=== PATIENT | female | born 1970 | race Caucasian/White ===

== ENCOUNTER 2020-09-09 10:28 | Outpatient (CLI) | payer OTHER, SELFPAY ==
--- NOTE | 2020-09-13 10:06 | P.PCNHOL_ITS ---
Holter/Event Monitor Holter/Event Monitor Date of procedure: 09/09/20 Holter/Event Procedure: 48 Hr Holter Monitor Diagnosis: flutter Indications: flutter Image/Tracing Quality: good Finding: A total of 47 hours and 59 minutes recorded and analyzed. U Underlying normal sinus rhythm heart rate variability between 66 and 122 beats per minute with an average heart rate of 89 beats per minute. The AV and IV conduction systems are within normal limits Longest RR interval was 1.7 seconds No complex heart block or significant pauses Low frequency ventricular ectopy totaling 10 Beats. There were no sustained or nonsustained runs of ventricular arrhythmia. Some of these ventricular ectopic beats listed as interpolated PVCs are actually simply artifact. Low-frequency supraventricular ectopy totaling 62 beats. This consisted of 1 3 beat atrial run at a rate of 158 beats per minute. There was also 3 atrial p airs and 53 isolated PACs. No symptoms recorded Date of interpretation 09/13/2020 Conclusion: 1. Unremarkable 48 hour Holter monitor revealing underlying sinus rhythm with average heart rate of 89 beats per minute. 2. Low frequency ventricular ectopy as well as low-frequency supraventricular ectopy as detailed above 3. No symptoms recorded
== END 2020-09-09 10:29 | disposition home or self-care (01) ==
PROVIDERS: PCP Emergency Medicine; Visit Provider Nurse Practitioner Adult Health
DX: R00.2 Palpitations (principal)
CPT/HCPCS: 93225; 93226; 93227

== ENCOUNTER 2021-03-24 16:40 | Outpatient (CLI) | payer OTHER, SELFPAY ==
[2021-03-24 17:13] LABS: Basophils Percent Auto 0.6 % (0.2-1.2); Eosinophils Absolute Auto 0.2 K/mm3 (0-0.3); Eosinophils Percent Auto 2.5 % (0-4.4); Hematocrit 41.3 % (37.0-47.0); Hemoglobin 13.8 g/dL (12.0-15.0); Immature Granulocyte Absolute 0.01 K/mm3 (0.00-0.031); Immature Granulocyte Percent A 0.1 % (0-0.5); Lymphocytes Absolute Auto 1.88 K/mm3 (0.9-3.2); Lymphocytes Percent Auto 27.9 % (18.3-44.2); Mean Corpuscular HGB Conc 33.4 g/dl (32-36); Mean Corpuscular Hemoglobin 31.9 pg (26-34); Mean Corpuscular Volume 95.6 fl (80-100); Mean Platelet Volume 9.6 fl (7.4-10.4); Monocytes Absolute Auto 0.8 K/mm3 (0.1-0.6); Monocytes Percent Auto 11.3 % (2.6-8.5); Neutrophils Absolute Auto 3.9 K/mm3 (1.3-6.7); Neutrophils Percent Auto 57.6 % (45.5-73.1); Platelet Count Result 277 k/mm3 (150-375); Red Blood Count 4.32 M/mm3 (4.2-5.4); Red Cell Distribution Width 11.9 % (11.5-14.5); White Blood Count 6.7 K/mm3 (4.5-10.0)
[2021-03-24 17:27] LABS: Rheumatoid Factor < 8.6 IU/ML (<12)
[2021-03-24 18:22] LABS: Erythrocyte Sedimentation Rate 5 mm/hr (0-20)
[2021-03-24 21:00] LABS: CRP 0.8 mg/dL (<1.0)
== END 2021-03-24 16:41 | disposition home or self-care (01) ==
LOC: ANHLAB 16:44
PROVIDERS: PCP Emergency Medicine; Visit Provider Nurse Practitioner Adult Health
DX: R68.89 Other general symptoms and signs (principal)
CPT/HCPCS: 36415; 85025; 85652; 86038; 86140; 86430

== ENCOUNTER 2024-09-18 11:52 | Outpatient (CLI) | payer OTHER, SELFPAY ==
--- NOTE | ~2024-09-18 | MM_ITS ---
EXAMINATION: MM screening marlon BI w jessika HISTORY: Screening TECHNIQUE: Craniocaudal and mediolateral oblique 3-D tomosynthesis images were obtained and synthetic 2-D images were generated. CAD analysis was submitted and interpreted. COMPARISON: 08/21/2014 BREAST PARENCHYMAL COMPOSITION: Dense: The breasts are heterogeneously dense, which may obscure small masses FINDINGS: There is no evidence of suspicious mass, calcification, or architectural distortion to sugg est malignancy in either breast. There has been no suspicious interval change. IMPRESSION: 1. No mammographic evidence of malignancy. 2. Recommend routine screening mammography in one year. BI-RADS Category 1: Negative Reviewed, dictated and finalized at location B.
--- OUTSIDE RECORDS SUMMARY | 2024-09-18 11:57 | XMS_ITS | Referral Summary ---
Author Organization [facility] Address [address] [place] [address] Care Team Providers Care Production Editor Name Role Phone Rene Mejia MD Primary Care Provider [phone] Encounters Date Type Department Care Team Description 09/03/2024 11:00 AM CDT Office Visit [facility] at [address] [address] Corry Becerra NP Physical exam, pre-employment (Primary Dx) from Last 3 Months Allergies Active Allergy Reactions Criticality Noted Date Comments Sulfa Other (See comments) 08/14/2023 Eye drops worsened condition. Medications ALPRAZolam (XANAX) 0.5 mg tablet TAKE 1 TABLET BY MOUTH EVERY 24 HOURS NEEDED 5 Active amLODIPine (NORVASC) 5 mg tablet Take 1 tablet (5 mg total) by mouth nightly Active atorvastatin (LIPITOR) 10 mg tablet Take 1 tablet every day by oral route at bedtime for 90 days. 4 Active buPROPion XL (WELLBUTRIN XL) 150 mg 24 hr tablet Take 1 tablet (150 mg total) by mouth daily Active busPIRone (BUSPAR) 10 mg tablet Take 1 tablet (10 mg total) by mouth 2 (two) times a day as needed Active FLUoxetine (PROzac) 20 mg tablet Take 2 tablets (40 mg total) by mouth Active levonorgestreL (Mirena) IUD Take 1 device by intrauterine route. Active irbesartan-hydr ochlorothiazide (AVALIDE) 150-12.5 mg per tablet Take 1 tablet by mouth every morning 5 Active progesterone (PROMETRIUM) 100 mg capsule Take 1 capsule (100 mg total) by mouth 4 Active tretinoin (RETIN-A) 0.05 % cream APPLY A PEA-SIZED AMOUNT TOPICALLY TO ENTIRE FACE EVERY NIGHT AT BEDTIME 3 Active Active Problems No known active problems Social History Tobacco Use Types Packs/Day Years Used Date Smoking Tobacco: Never Personal Safety Answer Date Recorded Getting School Help Needed Not on file 05/19 Comments Unknown Sex and Gender Information Value Date Recorded Sex Assigned at Not on file Legal Sex Female 5:23 AM [employer] Gender Identity Not on file Sexual Orientation Not on file Last Filed Vital Signs Vital Sign Reading Time Taken Comments Blood Pressure 124/86 09/03/2024 11:07 AM CDT Pulse 78 09/03/2024 11:07 AM CDT Temperature 37 C (98.6 F) 09/03/2024 11:07 AM CDT Respiratory Rate 20 09/03/2024 11:07 AM CDT Oxygen Saturation 99% 09/03/2024 11:07 AM CDT Inhaled Oxygen Concentration - - Weight 81.2 kg (179 lb) 09/03/2024 11:07 AM CDT Height 168.9 cm (5' 6.5) 09/03/2024 11:07 AM CD T Body Mass Index 28.46 09/03/2024 11:07 AM CDT Plan of Treatment Not on file Care Teams Production Editor Relationship Specialty Start Date End Date Rene Mejia MD PCP - General 07/18/17
--- OUTSIDE RECORDS SUMMARY | 2024-09-18 11:57 | XMS_ITS | Data Portability ---
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 Plan of Treatment Reminders Order Date Submit Date Provider Last Modified By Organization Details Last Modified Time Details Appointments None recorded. Lab urinalysis , dipstick 2016 017 [email or web address] In-Office Order, Internal Use Only DO Not Attach Compendium DO Not Attach Compendium, Do Not Delete/merge, [id number] 7 13:55:16 test, urine 2016 017 [email or web address] In-Office Order, Internal Use Only DO Not Attach Compendium DO Not Attach Compendium, Do Not Delete/merge, [id number] 7 13:55:16 urinalysis , dipstick 2016 017 [email or web address] In-Office Order, Internal Use Only DO Not Attach Compendium DO Not Attach Compendium, Do Not Delete/merge, [id number] 7 16:04:54 pap, IG + HPV, cervical 2016 017 KESHA LABCORANDALL, [address], [address], [place], [address], 7 10:35:53 bacterial vaginosis + vaginitis panel, vaginal 2016 017 KESHA MARSHALLRP, [address], [address], [place], [address], 7 11:36:03 lipid panel, serum 2016 017 KESHA MARSHALLRP, [address], [address], [place], [address], 7 08:27:57 CMP, serum or plasma 2016 017 KESHA MARSHALLRP, [address], [address], [place], [address], 7 08:27:57 HbA1c (hemoglobi n A1c), blood 2016 017 KESHA TATE, [address], [address], [place], [address], 7 08:27:59 CBC 2016 017 KESHA TATE, [address], [address], [place], [address], 7 08:27:56 TSH + free T4, serum 2016 017 KESHA TATE, [address], [address], [place], [address], 7 08:27:56 PT/INR 2016 017 KESHA MARSHALLRP, [address], [address], [place], [address], 7 08:27:58 PTT (partial thrombopla stin time) mixing study 2016 017 KESHA MARSHALLRP, [address], [address], [place], [address], 7 08:28:00 HCG, intact + beta subunit, quant, serum or plasma 2016 017 [facility], [address] [place] [address], [address], [place], [address], 7 08:27:59 RPR (rapid plasma reagin), serum 2016 017 [facility], [address] [place] [address], [address], [place], [address], 7 08:28:01 hsv-2 (herpes simplex virus type 2) igg Ab, serum 2016 017 [facility], [address] [place] [address] [address], [address], [place], [address], 7 08:28:02 hepatitis panel (A+B+C), acute, serum 2016 017 [facility], [address] [place] [address], [address], [place], [address], 7 08:27:58 hepatitis B surface Ab, qualitativ e, serum 2016 017 [facility], [address] [place] [address], [address], [place], [address], 7 08:28:00 HIV 1+2 AB + HIV 1 p24 Ag, qualitativ e immunoassa y, serum 2016 017 [facility], [address], [address] [address], [place], [address], 7 08:28:01 pap, IG + HPV, cervical 2014 015 [facility], [address] [place] [address], [address], [place], [address], 5 06:10:08 HSV (1+2) DNA, qual, PCR, unspecifie d specimen 2014 015 [facility], [address], [address], [place], [address], 5 06:09:36 bacterial vaginosis + vaginitis panel, vaginal 2014 015 [facility], [address], [address], [place], [address], 5 06:09:36 test, urine 2014 015 [email or web address] In-Office Order, Internal Use Only DO Not Attach Compendium DO Not Attach Compendium, Do Not Delete/merge, [id number] 5 10:46:[address]/dietiti an referral - patient wants to come here 2016 017 [facility]/ [employer]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 Surgeries None recorded. Imaging US, pelvis, transabdom inal + transvagin al 2016 017 [facility] ([facility]), [address] [place], [address], 7 13:42:03 Medication Orders Metrogel Vaginal 0.75 % (37.5 mg/5 gram) [email or web address], [place], [place], [id number], 7 14:31:30 Junel FE 1.5/30 (28) 1.5 mg-30 mcg (21)/75 mg (7) tablet 2014 [email or web address], [place], [place], [id number], 7 14:31:17 Patient TargetsNo targets recorded. Patient Instructions Encounter Date Encounter Id Patient Instructions Last Modified By Organization Details Last Modified Time 10/19/2016 [id number] When You Want to Lose Weight: Care Instructions [email or web address] Not available 10/19/2016 15:11:13 Well Visit, Ages 18 to 65: Care Instructions [email or web address] Not available 10/19/2016 14:54:07 heavy menstrual periods: care instructions [email or web address] Not available 10/19/2016 15:11:13 11/10/2016 [id number] genital herpes: care instructions [email or web address] Not available 11/10/2016 16:12:51 high cholesterol: care instructions [email or web address] Not available 11/10/2016 16:12:52 uterine fibroids: care instructions [email or web address] Not available 11/10/2016 13:55:16 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 for Overweight patient wants to come here Referring Physician: Frank Pollard, ELECTRICAL DESIGNER DRAFTER, Encounter Date: 10/19/2016 Results Created Date Observation Date Name Description Value Unit Range Abnormal Flag Note LastModifiedBy Organization Detail LastModifiedTime 11/11/19 17 11/10/2016 pregn mike test, urine HCG negati ve Not Available In-Office Order Internal Use Only DO Not Attach Compendium DO Not Attach Compendium, Do Not Delete/merge, [id number] 11/10/2016 11:36:04 11/11/1911/10/2016 urina lysis , dipst ick Leukocytes Negati ve Not Available In-Office Order Internal Use Only DO Not Attach Compendium DO Not Attach Compendium, Do Not Delete/merge, [id number] 11/10/2016 11:35:20 11/11/1911/10/2016 urina lysis , dipst ick Nitrite negati ve Not Available In-Office Order Internal Use Only DO Not Attach Compendium DO Not Attach Compendium, Do Not Delete/merge, formerly [facility] 11/10/2016 11:35:20 11/11/1911/10/2016 urina lysis , dipst ick Urobilinogen .2 Not Available In-Of fice Order Internal Use Only DO Not Attach Compendium DO Not Attach Compendium, Do Not Delete/merge, formerly [facility] 11/10/2016 11:35:20 11/11/1911/10/2016 urina lysis , dipst ick Protein Negati ve Not Available In-Office Order Internal Use Only DO Not Attach Compendium DO Not Attach Compendium, Do Not Delete/merge, formerly [facility] 11/10/2016 11:35:20 11/11/1911/10/2016 urina lysis , dipst ick pH 7.0 Not Available In-Office Order Internal Use Only DO Not Attach Compendium DO Not Attach Compendium, Do Not Delete/merge, formerly [facility] 11/10/2016 11:35:20 11/11/1911/10/2016 urina lysis , dipst ick Blood Modera te Not Available In-Office Order Internal Use Only DO Not Attach Compendium DO Not Attach Compendium, Do Not Delete/merge, formerly [facility] 11/10/2016 11:35:20 11/11/1911/10/2016 urina lysis , dipst ick Specific [place] 1.025 Not Available In-Off ice Order Internal Use Only DO Not Attach Compendium DO Not Attach Compendium, Do Not Delete/merge, formerly [facility] 11/10/2016 11:35:20 11/11/1911/10/2016 urina lysis , dipst ick Ketone Negati ve Not Available In-Office Order Internal Use Only DO Not Attach Compendium DO Not Attach Compendium, Do Not Delete/merge, formerly [facility] 11/10/2016 11:35:20 11/11/1911/10/2016 urina lysis , dipst ick Bilirubin Negati ve Not Available In-Office Order Internal Use Only DO Not Attach Compendium DO Not Attach Compendium, Do Not Delete/merge, formerly [facility] 11/10/2016 11:35:20 11/11/1911/10/2016 urina lysis , dipst ick Glucose Negati ve Not Available In-Office Order Internal Use Only DO Not Attach Compendium DO Not Attach Compendium, Do Not Delete/merge, [id number] 11/10/2016 11:35:20 10/20/1910/19/2016 urina lysis , dipst ick Leukocytes Negati ve Not Available In-Office Order Internal Use Only DO Not Attach Compendium DO Not Attach Compendium, Do Not Delete/merge, [id number] 10/19/2016 14:42:10/20/1910/19/2016 urina lysis , dipst ick Nitrite negati ve Not Available In-Office Order Internal Use Only DO Not Attach Compendium DO Not Attach Compendium, Do Not Delete/merge, 10/19/2016 14:42:10/20/1910/19/2016 urina lysis , dipst ick Urobilinogen .2 Not Available In-Of fice Order Internal Use Only DO Not Attach Compendium DO Not Attach Compendium, Do Not Delete/merge, 10/19/2016 14:42:10/20/1910/19/2016 urina lysis , dipst ick Protein Negati ve Not Available In-Office Order Internal Use Only DO Not Attach Compendium DO Not Attach Compendium, Do Not Delete/merge, 10/19/2016 14:42:10/20/1910/19/2016 urina lysis , dipst ick pH 7.0 Not Available In-Office Order Internal Use Only DO Not Attach Compendium DO Not Attach Compendium, Do Not Delete/merge, 10/19/2016 14:42:10/20/1910/19/2016 urina lysis , dipst ick Blood Non-He molyze d: Trace Not Available In-Office Order Internal Use Only DO Not Attach Compendium DO Not Attach Compendium, Do Not Delete/merge, 10/19/2016 14:42:10/20/1910/19/2016 urina lysis , dipst ick Specific [place] 1.020 Not Available In-Off ice Order Internal Use Only DO Not Attach Compendium DO Not Attach Compendium, Do Not Delete/merge, 10/19/2016 14:42:10/20/1910/19/2016 urina lysis , dipst ick Ketone Negati ve Not Available In-Office Order Internal Use Only DO Not Attach Compendium DO Not Attach Compendium, Do Not Delete/merge, [id number] 10/19/2016 14:42:06 10/20/19 17 10/19/2016 urina lysis , dipst ick Bilirubin Negati ve Not Available In-Office Order Internal Use Only DO Not Attach Compendium DO Not Attach Compendium, Do Not Delete/merge, [id number] 10/19/2016 14:42:06 10/20/19 17 10/19/2016 urina lysis , dipst ick Glucose Negati ve Not Available In-Office Order Internal Use Only DO Not Attach Compendium DO Not Attach Compendium, Do Not Delete/merge, [id number] 10/19/2016 14:42:06 10/20/19 17 10/19/2016 urina lysis , dipst ick Appearance Clear Not Available In-Offi ce Order Internal Use Only DO Not Attach Compendium DO Not Attach Compendium, Do Not Delete/merge, [id number] 10/19/2016 14:42:06 10/20/19 17 10/19/2016 urina lysis , dipst ick Color Yellow Not Available In-Office Order Internal Use Only DO Not Attach Compendium DO Not Attach Compendium, Do Not Delete/merge, [id number] 10/19/2016 14:42:06 09/25/19 15 09/24/2014 pregn mike test, urine HCG negati ve Not Available In-Office Order Internal Use Only DO Not Attach Compendium DO Not Attach Compendium, Do Not Delete/merge, [id number] 09/24/2014 12:19:38 09/25/19 15 09/29/2014 bacte rial vagin osis + vagin itis panel , vagin al trich vag by CLIVE NEGATI VE negati ve Not Available [facility] ([facility]) [address], [place], [address], 10/01/2014 06:09:36 09/25/19 15 09/29/2014 bacte rial vagin osis + vagin itis panel , vagin al chlamydia trachomatis, CLIVE NEGATI VE negati ve Not Available [facility] ([facility]) [address], [place], [address], 10/01/2014 06:09:36 09/25/19 15 09/29/2014 bacte rial vagin osis + vagin itis panel , vagin al neisseria gonorrhoeae, CLIVE NEGATI VE negati ve Not Available [facility] ([facility]) [address] [facility] [address], [place], [address], 10/01/2014 06:09:36 09/25/19 15 09/30/2014 bacte rial vagin osis + vagin itis panel , vagin al atopobium vaginae LOW - 0 score Not Available [facility] ([facility]) [address] [facility] [address], [place], [address], 10/01/2014 06:09:36 09/25/19 15 09/30/2014 bacte rial vagin osis + vagin itis panel , vagin al bvab 2 LOW - 0 score Not Available [facility] ([facility]) [address] [place] [address], [address], 10/01/2014 06:09:36 09/25/19 15 09/30/2014 bacte rial vagin osis + vagin itis panel , vagin al megasphaera 1 LOW - 0 score CALCU LATE TOTAL SCORE BY MILTON Cortés THE 3 INDIV IDUAL BACTE RIAL VAGIN OSIS (BV) MARKE R SCORE S TOGET HER. TOTAL SCORE IS INTER PRETE D FOLLO WS: TOTAL SCORE 0-1: INDIC ATES THE ABSEN CE OF BV. TOTAL SCORE 2: INDET ERMIN ATE FOR BV. ADDIT IONAL CLINI ALLIE DATA SHOUL D BE EVALU ATED TO ESTAB DEVEN A DIAGN OSIS. TOTAL SCORE 3-6: INDIC ATES THE PRESE NCE OF BV. THIS TEST WAS DEVEL OPED AND ITS PERFO RMANC E MIKE CTERI STICS DETER MINED BY [facility]. IT HAS NOT BEEN CLEAR ED OR APPRO GOLD BY THE FOOD AND DRUG ADMIN ISTRA TION. THE FDA HAS DETER MINED THAT SUCH CLEAR ANCE OR APPRO ISRA IS NOT NECES XIMENA. Not Available [facility] ([facility]) [address] [place], [address], 10/01/2014 06:09:36 09/25/19 15 09/30/2014 bacte rial vagin osis + vagin itis panel , vagin al jenny albicans, CLIVE NEGATI VE negati ve Not Available [facility] ([facility]) [address] [facility] [address], [place], [address], 10/01/2014 06:09:36 09/25/19 15 09/30/2014 bacte rial vagin osis + vagin itis panel , vagin al jenny glabrata, CLIVE NEGATI VE negati ve THIS TEST WAS DEVEL OPED AND ITS PERFO RMANC E MIKE CTERI STICS DETER MINED BY [facility]. IT HAS NOT BEEN CLEAR ED OR APPRO GOLD BY THE FOOD AND DRUG ADMIN ISTRA TION. THE FDA HAS DETER MINED THAT SUCH CLEAR ANCE OR APPRO ISRA IS NOT NECES XIMENA. Not Available [facility] ([facility]) [address] [facility] [address], [place], [address], 10/01/2014 06:09:36 09/25/19 15 09/27/2014 HSV (1+2) DNA, qual, PCR, unspe cifie d speci men hsv 1 CLIVE NEGATI VE negati ve Not Available [facility] ([facility]) [address] [facility] [address], [place], [address], 10/01/2014 06:09:36 09/25/19 15 09/27/2014 HSV (1+2) DNA, qual, PCR, unspe cifie d speci men hsv 2 CLIVE NEGATI VE negati ve Not Available [facility] ([facility]) [address] [facility] [address], [place], [address], 10/01/2014 06:09:36 09/25/19 15 09/28/2014 pap, IG + HPV, cervi allie diagnosis: COMMEN T NEGAT NOMAN FOR INTRA EPITH ELIAL LESIO N AND JOSÉ LUIS ROACH . Not Available [facility] ([facility]) [address] [place], [address], 10/01/2014 06:10:08 09/25/19 15 09/28/2014 pap, IG + HPV, cervi allie specimen adequacy: DEWAYNE T SATIS FACTO RY FOR EVALU ATION . ENDOC ERVIC AL AND/O R SQUAM OUS METAP LASTI C CELLS (ENDO CERVI ALLIE COMPO NENT) ARE PRESE NT. Not Available [facility] ([facility]) [address] [place], [address], 10/01/2014 06:10:08 09/25/19 15 09/28/2014 pap, IG + HPV, cervi allie clinician provided ICD9: DEWAYNE Diaz [id number] Not Available [facility] ([facility]) [address] [place], [address], 10/01/2014 06:10:08 09/25/19 15 09/28/2014 pap, IG + HPV, cervi allie performed by: HUMA HALLMAN (ASCP ) Not Available [facility] ([facility]) [address] [place], [address], 10/01/2014 06:10:08 09/25/19 15 09/28/2014 pap, IG + HPV, cervi allie . . Not Available [facility] ([facility]) [address] [place], [address], 10/01/2014 06:10:08 09/25/19 15 09/28/2014 pap, IG + HPV, cervi allie note: DEWAYNE T THE PAP SMEAR IS A SCREE JERMAINE TEST DESIG LATANYA TO AID IN THE DETEC TION OF ANIYA LIGNA NT AND MALIG NANT CONDI TIONS OF THE UTERI NE CERVI X. IT IS NOT A DIAGN OSTIC PROCE DURE AND SHOUL D NOT BE USED THE SOLE MEANS OF DETEC TING CERVI ALLIE CANCE R. BOTH FALSE -POSI TIVE AND FALSE -NEGA TIVE REPOR TS DO OCCUR . Not Available [facility] ([facility]) [address] [place], [address], 10/01/2014 06:10:08 09/25/19 15 09/28/2014 pap, IG + HPV, cervi allie test methodology: COMMEN T THIS LIQUI D BASED THINP REP(R ) PAP TEST WAS ALTAGRACIA PELAEZ WITH THE USE OF AN IMAGE GUIDE Meagan Levine Not Available [facility] ([facility]) [address] [facility] [address], [place], [address], 10/01/2014 06:10:08 09/25/19 15 09/30/2014 pap, IG + HPV, cervi allie HPV aptima NEGATI VE negati ve THIS TEST DETEC TS FOURT EEN HIGH- RISK HPV TYPES (16/1 8/31/ 33/35 /39/4 5/ 51/52 /56/5 8/59/ 66/68 ) WITHO UT DIFFE RENTI ATION . Not Available [facility] ([facility]) [address] [place], [address], 10/01/2014 06:10:08 10/20/19 17 10/20/2016 TSH + free T4, serum TSH 1.050 uIU/m L 0.450- 4.500 Not Available [facility] ([facility]) [address] [place], [address], 10/20/2016 08:27:56 10/20/1910/20/2016 TSH + free T4, serum T4,free(dire ct) 1.10 NG/dL 0.82-1 .77 Not Available [facility] ([facility]) [address] [place], [address], 10/20/2016 08:27:56 10/20/1910/20/2016 CBC WBC 5.5 x10e3 /uL 3.4-10 .8 Not Available [facility] ([facility]) [address] [place], [address], 10/20/2016 08:27:56 10/20/19 17 10/20/2016 CBC RBC 4.39 x10e6 /uL 3.77-5 .28 Not Available [facility] ([facility]) [address] [place], [address], 10/20/2016 08:27:56 10/20/1910/20/2016 CBC hemoglobin 13.5 g/dL 11.1-1 5.9 Not Available [facility] ([facility]) [address] [place], [address], 10/20/2016 08:27:56 10/20/1910/20/2016 CBC hematocrit 40.6 % 34.0-4 6.6 Not Available [facility] ([facility]) [address] [facility], [address], 10/20/2016 08:27:56 10/20/1910/20/2016 CBC MCV 93 fL 79-97 Not Available [facility] ([facility]) [address] [facility], [address], 10/20/2016 08:27:56 10/20/1910/20/2016 CBC MCH 30.8 pg 26.6-3 3.0 Not Available [facility] ([facility]) [address] [facility], [address], 10/20/2016 08:27:56 10/20/1910/20/2016 CBC MCHC 33.3 g/dL 31.5-3 5.7 Not Available [facility] ([facility]) [address] [facility], [address], 10/20/2016 08:27:56 10/20/19 17 10/20/2016 CBC RDW 11.9 % 12.3-1 5.4 below low normal Not Available [facility] ([facility]) [address] [place], [address], 10/20/2016 08:27:56 10/20/19 17 10/20/2016 CBC platelets 308 x10e3 /uL 150-37 9 Not Available [facility] ([facility]) [address] [place], [address], 10/20/2016 08:27:56 10/20/19 17 10/20/2016 CBC neutrophils 57 % Not Avai lable [facility] ([facility]) [address] [place], [address], 10/20/2016 08:27:56 10/20/1910/20/2016 CBC lymphs 30 % Not Available [facility] ([facility]) [address] [place], [address], 10/20/2016 08:27:56 10/20/19 17 10/20/2016 CBC monocytes 10 % Not Availa ble [facility] ([facility]) [address] [place], [address], 10/20/2016 08:27:56 10/20/1910/20/2016 CBC eos 3 % Not Available [facility] ([facility]) [address] [place], [address], 10/20/2016 08:27:56 10/20/1910/20/2016 CBC basos 0 % Not Available [facility] (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) [address] [place], [address], 10/20/2016 08:27:56 10/20/19 17 10/20/2016 CBC neutrophils (absolute) 3.1 x10e3 /uL 1.4-7. 0 Not Available [facility] ([facility]) [address] [facility] [address], [place], [address], 10/20/2016 08:27:56 10/20/1910/20/2016 CBC lymphs (absolute) 1.7 x10e3 /uL 0.7-3. 1 Not Available [facility] ([facility]) [address] [facility] [address], [place], [address], 10/20/2016 08:27:56 10/20/1910/20/2016 CBC monocytes(ab solute) 0.6 x10e3 /uL 0.1-0. 9 Not Available [facility] ([facility]) [address] [facility] [address], [place], [address], 10/20/2016 08:27:56 10/20/1910/20/2016 CBC eos (absolute) 0.2 x10e3 /uL 0.0-0. 4 Not Available [facility] ([facility]) [address] [facility], [place], [address], 10/20/2016 08:27:56 10/20/1910/20/2016 CBC baso (absolute) 0.0 x10e3 /uL 0.0-0. 2 Not Available [facility] ([facility]) [address] [facility], [place], [address], 10/20/2016 08:27:56 10/20/1910/20/2016 CBC immature granulocytes 0 % Not Available [facility]) [address] [facility] [address], [place], [address], 10/20/2016 08:27:56 10/20/1910/20/2016 CBC immature grans (abs) 0.0 x10e3 /uL 0.0-0. 1 Not Available [facility] (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) [address] [facility] [place], [address], 10/20/2016 08:27:56 10/20/1910/20/2016 CMP, serum or plasm a glucose, serum 95 mg/dL 65-99 Not Available [facility] ([facility]) [address] [facility] [place], [address], 10/20/2016 08:27:57 10/20/1910/20/2016 CMP, serum or plasm a BUN 16 mg/dL 6-24 Not Available [facility] ([facility]) [address] [facility] [place], [address], 10/20/2016 08:27:57 10/20/1910/20/2016 CMP, serum or plasm a creatinine, serum 0.74 mg/dL 0.57-1 .00 Not Available [facility] ([facility]) [address] [facility] [place], [address], 10/20/2016 08:27:57 10/20/1910/20/2016 CMP, serum or plasm a eGFR if nonafricn AM 99 mL/mi n/1.7 3 >59 Not Available [facility] ([facility]) [address] [facility] [place], [address], 10/20/2016 08:27:57 10/20/1910/20/2016 CMP, serum or plasm a eGFR if africn AM 114 mL/mi n/1.7 3 >59 Not Available [facility] ([facility]) [address] [place] [address] [place], [address], 10/20/2016 08:27:57 10/20/1910/20/2016 CMP, serum or plasm a BUN/creatini ne ratio 22 9-23 Not Available [facility] ([facility]) [address] [place], [address], 10/20/2016 08:27:57 10/20/1910/20/2016 CMP, serum or plasm a sodium, serum 142 mmol/ L 134-14 4 Not Available [facility] ([facility]) [address] [place], [address], 10/20/2016 08:27:57 10/20/1910/20/2016 CMP, serum or plasm a potassium, serum 4.6 mmol/ L 3.5-5. 2 Not Available [facility] ([facility]) [address] [place], [address], 10/20/2016 08:27:57 10/20/1910/20/2016 CMP, serum or plasm a chloride, serum 101 mmol/ L 96-106 Not Available [facility] ([facility]) [address] [place], [address], 10/20/2016 08:27:57 10/20/1910/20/2016 CMP, serum or plasm a carbon dioxide, total 23 mmol/ L 18-29 Not Available [facility] ([facility]) [address] [place], [address], 10/20/2016 08:27:57 10/20/1910/20/2016 CMP, serum or plasm a calcium, serum 9.4 mg/dL 8.7-10 .2 Not Available [facility] ([facility]) [address] [place], [address], 10/20/2016 08:27:57 10/20/1910/20/2016 CMP, serum or plasm a protein, total, serum 7.0 g/dL 6.0-8. 5 Not Available [facility] ([facility]) [address] [place], [address], 10/20/2016 08:27:57 10/20/19 17 10/20/2016 CMP, serum or plasm a albumin, serum 4.5 g/dL 3.5-5. 5 Not Available [facility] ([facility]) [address] [place], [address], 10/20/2016 08:27:57 10/20/1910/20/2016 CMP, serum or plasm a globulin, total 2.5 g/dL 1.5-4. 5 Not Available [facility] ([facility]) [address] [place], [address], 10/20/2016 08:27:57 10/20/1910/20/2016 CMP, serum or plasm a A/G ratio 1.8 1.2-2. 2 Not Available [facility] ([facility]) [address] [place], [address], 10/20/2016 08:27:57 10/20/1910/20/2016 CMP, serum or plasm a bilirubin, total 0.3 mg/dL 0.0-1. 2 Not Available [facility] ([facility]) [address] [place], [address], 10/20/2016 08:27:57 10/20/1910/20/2016 CMP, serum or plasm a alkaline phosphatase, S 105 IU/L 39-117 Not Available [facility] ([facility]) [address] [place], [address], 10/20/2016 08:27:57 10/20/1910/20/2016 CMP, serum or plasm a AST (SGOT) 14 IU/L 0-40 Not Available [facility] ([facility]) [address] [place], [address], 10/20/2016 08:27:57 10/20/1910/20/2016 CMP, serum or plasm a ALT (SGPT) 12 IU/L 0-32 Not Available [facility] ([facility]) [address] [facility] [place], [address], 10/20/2016 08:27:57 10/20/19 17 10/20/2016 lipid panel , serum cholesterol, total 213 mg/dL 100-19 9 above high normal Not Available [facility] ([facility]) [address] [facility] [place], [address], 10/20/2016 08:27:57 10/20/19 17 10/20/2016 lipid panel , serum triglyceride s 70 mg/dL 0-149 Not Available [facility] ([facility]) [address] [facility] [place], [address], 10/20/2016 08:27:57 10/20/1910/20/2016 lipid panel , serum HDL cholesterol 73 mg/dL >39 Not Available [facility] ([facility]) [address] [facility] [place], [address], 10/20/2016 08:27:57 10/20/19 17 10/20/2016 lipid panel , serum VLDL cholesterol allie 14 mg/dL 5-40 Not Available [facility] ([facility]) [address] [facility] [place], [address], 10/20/2016 08:27:57 10/20/1910/20/2016 lipid panel , serum LDL cholesterol calc 126 mg/dL 0-99 above high normal Not Available [facility] (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) [address] [facility] [place], [address], 10/20/2016 08:27:57 10/20/19 17 10/20/2016 hepat itis panel (A+B+ C), acute , serum hep A Ab, IgM NEGATI VE negati ve Not Available [facility] ([facility]) [address] [facility], [place], [address], 10/20/2016 08:27:58 10/20/1910/20/2016 hepat itis panel (A+B+ C), acute , serum HBsAg screen NEGATI VE negati ve Not Available [facility] ([facility]) [address] [place], [address], 10/20/2016 08:27:58 10/20/1910/20/2016 hepat itis panel (A+B+ C), acute , serum hep B core Ab, IgM NEGATI VE negati ve Not Available [facility] ([facility]) [address] [place], [address], 10/20/2016 08:27:58 10/20/1910/20/2016 hepat itis panel (A+B+ C), acute , serum hep C virus Ab <0.1 S/co_ ratio 0.0-0. 9 NEGAT NOMAN: < 0.8 INDET ERMIN ATE: 0.8 - 0.9 POSIT NOMAN: > 0.9 THE CDC RECOM MENDS THAT A POSIT NMOAN HCV ANTIB RONALDO RESUL T BE FOLLO WED UP WITH A HCV NUCLE IC ACID AMPLI FICAT ION TEST (5507 [id number]). Not Available [facility] ([facility]) [address] [place], [address], 10/20/2016 08:27:58 10/20/1910/20/2016 PT/IN R INR 1.0 0.8-1. 2 REFER ENCE INTER ISRA IS FOR NON-A NTICO AGULA TIERRA PATIE NTS. SUGGE STED INR THERA PEUTI C RANGE FOR VITAM IN K ANTAG ONIST THERA PY: STAND ANOOP DOSE (MODE RATE INTEN SITY THERA PEUTI C RANGE ): 2.0 - 3.0 HIGHE R INTEN SITY THERA PEUTI C RANGE 2.5 - 3.5 Not Available [facility] ([facility]) [address] [place], [address], 10/20/2016 08:27:58 10/20/19 17 10/20/2016 PT/IN R prothrombin time 9.9 sec 9.1-12 .0 Not Available [facility] ([facility]) [address] [place], [address], 10/20/2016 08:27:58 10/20/1910/20/2016 HbA1c (hemo globi n A1c), blood hemoglobin A1C 5.1 % 4.8-5. 6 PRE-D IABET ES: 5.7 - 6.4 DIABE RAMAN: >6.4 GLYCE SRIDEVI CONTR OL FOR ADULT S WITH DIABE RAMAN: <7.0 Not Available [facility] ([facility]) [address] [place], [address], 10/20/2016 08:27:59 10/20/1910/20/2016 HCG, intac t + beta subun it, quant , serum or plasm a HCG,beta subunit,qnt, serum <1 mIU/m L FEMAL E (NON- PREGN ANT) 0 - 5 (POST MENOP AUSAL ) 0 - 8 FEMAL E (PREG NANT) WEEKS OF GESTA TION 3 6 - 71 4 10 - 750 5 402 - 9538 6 158 - 89394 7 0607 -163 63 8 50728 -0367 71 9 87841 -5166 10 10 87746 -2151 77 12 39385 -7441 12 14 90723 - 61974 15 57183 - 09247 16 4530 - 37154 17 0403 - 42277 18 7903 - [phone] YASMINE ECLIA METHO DOLOG Y Not Available [facility] ([facility]) [address] [facility], [place], [address], 10/20/2016 08:27:59 10/20/1910/20/2016 PTT (part ial throm bopla stin time) mixin g study APTT 27 sec 24-33 THIS TEST HAS NOT BEEN VALID ATED FOR MONIT ORING UNFRA CTION ATED HEPAR IN THERA PY. APTT- BASED THERA PEUTI C RANGE S FOR UNFRA CTION ATED HEPAR IN THERA PY HAVE NOT BEEN ESTAB KENTRELL Santos FOR GENER AL GUIDE LINES ON HEPAR IN [facility] ORING , REFER TO THE [facility] DIREC TORY OF CRAOL CAR. Not Available [facility] ([facility]) [address] [facility], [place], [address], 10/20/2016 08:28:00 10/20/1910/20/2016 hepat itis B surfa ce Ab, quali tativ e, serum hep B surface Ab, qual NON REACTI VE NON REACT NOMAN: INCON SISTE NT WITH IMMUN ITY, LESS THAN 10 MIU/M L REACT NOMAN: CONSI STENT WITH IMMUN ITY, GREAT ER THAN 9.9 MIU/M L Not Available [facility] ([facility]) [address] [place], [address], 10/20/2016 08:28:00 10/20/1910/20/2016 RPR (rapi d plasm a reagi n), serum RPR NON REACTI VE non reacti ve Not Available [facility] ([facility]) [address] [place], [address], 10/20/2016 08:28:01 10/20/1910/20/2016 HIV 1+2 AB + HIV 1 p24 Ag, quali tativ e immun oassa y, serum HIV screen 4TH generation wrfx NON REACTI VE non reacti ve Not Available [facility] ([facility]) [address] [place], [address], 10/20/2016 08:28:01 10/20/1910/20/2016 hsv-2 (herp es simpl ex virus type 2) igg Ab, serum hsv 2 IgG, type spec 10.70 index 0.00-0 .90 above high normal NEGAT NOMAN <0.91 EQUIV OCAL 0.91 - 1.09 POSIT NOMAN >1.09 NOTE: NEGAT NOMAN INDIC ATES NO ANTIB ODIES DETEC TIERRA TO HSV-2 . EQUIV OCAL MAY SUGGE ST EARLY INFEC TION. IF CLINI TATO APPRO PRIAT E, RETES T AT LATER DATE. POSIT NOMAN INDIC ATES ANTIB ODIES DETEC TIERRA TO HSV-2 . Not Available [facility] ([facility]) [address] [facility], [place], [address], 10/20/2016 08:28:02 10/20/19 17 10/20/2016 pap, IG + HPV, cervi allie diagnosis: DEWAYNE Diaz NEGAT NOMAN FOR INTRA EPITH ELIAL LESIO N AND JOSÉ LUIS ROACH . Not Available [facility] ([facility]) [address] [facility] [address], [place], [address], 10/23/2016 10:35:53 10/20/19 17 10/20/2016 pap, IG + HPV, cervi allie specimen adequacy: DEWAYNE Diaz SATIS FACTO RY FOR EVALU ATION . ENDOC ERVIC AL AND/O R SQUAM OUS METAP LASTI C CELLS (ENDO CERVI ALLIE COMPO NENT) ARE PRESE NT. Not Available [facility] ([facility]) [address] [facility] [address], [place], [address], 10/23/2016 10:35:53 10/20/19 17 10/20/2016 pap, IG + HPV, cervi allie clinician provided ICD10: DEWAYNE Diaz Z01.4 19 Not Available [facility] ([facility]) [address] [place], [address], 10/23/2016 10:35:53 10/20/19 17 10/20/2016 pap, IG + HPV, cervi allie performed by: HUMA AU (ASCP ) Not Available [facility] ([facility]) [address] [place], [address], 10/23/2016 10:35:53 10/20/19 17 10/20/2016 pap, IG + HPV, cervi allie . . Not Available [facility] ([facility]) [address] [place], [address], 10/23/2016 10:35:53 10/20/19 17 10/20/2016 pap, IG + HPV, cervi allie note: COMMEN T THE PAP SMEAR IS A SCREE JERMAINE TEST DESIG LATANYA TO AID IN THE DETEC TION OF ANIYA LIGNA NT AND MALIG NANT CONDI TIONS OF THE UTERI NE CERVI X. IT IS NOT A DIAGN OSTIC PROCE DURE AND SHOUL D NOT BE USED THE SOLE MEANS OF DETEC TING CERVI ALLIE CANCE R. BOTH FALSE -POSI TIVE AND FALSE -NEGA TIVE REPOR TS DO OCCUR . Not Available [facility] ([facility]) [address] [facility] [address], [place], [address], 10/23/2016 10:35:53 10/20/19 17 10/20/2016 pap, IG + HPV, cervi allie test methodology: COMMEN T THIS LIQUI D BASED THINP REP(R ) PAP TEST WAS SCREE LATANYA WITH THE USE OF AN IMAGE GUIDE D SYSTBen M. Not Available [facility] ([facility]) [address] [place], [address], 10/23/2016 10:35:53 10/20/19 17 10/23/2016 pap, IG + HPV, cervi allie HPV aptima NEGATI VE negati ve THIS TEST DETEC TS FOURT EEN HIGH- RISK HPV TYPES (16/1 8/31/ 33/35 /39/4 5/ 51/52 /56/5 8/59/ 66/68 ) WITHO UT DIFFE RENTI ATION . Not Available [facility] ([facility]) [address] [place], [address], 10/23/2016 10:35:53 10/20/19 17 10/21/2016 bacte rial vagin osis + vagin itis panel , vagin al trich vag by CLIVE NEGATI VE negati ve Not Available [facility] ([facility]) [address] [place], [address], 10/24/2016 11:36:03 10/20/19 17 10/21/2016 bacte rial vagin osis + vagin itis panel , vagin al chlamydia trachomatis, CLIVE NEGATI VE negati ve Not Available [facility] ([facility]) [address] [facility], [place], [address], 10/24/2016 11:36:03 10/20/19 17 10/21/2016 bacte rial vagin osis + vagin itis panel , vagin al neisseria gonorrhoeae, CLIVE NEGATI VE negati ve Not Available [facility] ([facility]) [address] [facility], [place], [address], 10/24/2016 11:36:03 10/20/19 17 10/23/2016 bacte rial vagin osis + vagin itis panel , vagin al jenny albicans, CLIVE NEGATI VE negati ve Not Available [facility] ([facility]) [address] [facility], [place], [address], 10/24/2016 11:36:03 10/20/19 17 10/23/2016 bacte rial vagin osis + vagin itis panel , vagin al jenny glabrata, CLIVE NEGATI VE negati ve THIS TEST WAS DEVEL OPED AND ITS PERFO RMANC E MIKE CTERI STICS DETER MINED BY [facility]. IT HAS NOT BEEN CLEAR ED OR APPRO GOLD BY THE FOOD AND DRUG ADMIN ISTRA TION. THE FDA HAS DETER MINED THAT SUCH CLEAR ANCE OR APPRO ISRA IS NOT NECES XIMENA. Not Available [facility] ([facility]) [address] [facility], [place], [address], 10/24/2016 11:36:03 10/20/1910/24/2016 bacte rial vagin osis + vagin itis panel , vagin al atopobium vaginae LOW - 0 score Not Available [facility] ([facility]) [address] [place], [address], 10/24/2016 11:36:03 10/20/19 17 10/24/2016 bacte rial vagin osis + vagin itis panel , vagin al bvab 2 LOW - 0 score Not Available [facility] ([facility]) [address] [facility], [place], [address], 10/24/2016 11:36:03 10/20/19 17 10/24/2016 bacte rial vagin osis + vagin itis panel , vagin al megasphaera 1 LOW - 0 score CALCU LATE TOTAL SCORE BY MILTON Cortés THE 3 INDIV IDUAL BACTE RIAL VAGIN OSIS (BV) MARKE R SCORE S TOGET HER. TOTAL SCORE IS INTER PRETE D FOLLO WS: TOTAL SCORE 0-1: INDIC ATES THE ABSEN CE OF BV. TOTAL SCORE 2: INDET ERMIN ATE FOR BV. ADDIT IONAL CLINI ALLIE DATA SHOUL D BE EVALU ATED TO ESTAB DEVEN A DIAGN OSIS. TOTAL SCORE 3-6: INDIC ATES THE PRESE NCE OF BV. THIS TEST WAS DEVEL OPED AND ITS PERFO RMANC E MIKE CTERI STICS DETER MINED BY [facility]. IT HAS NOT BEEN CLEAR ED OR APPRO GOLD BY THE FOOD AND DRUG ADMIN ISTRA TION. THE FDA HAS DETER MINED THAT SUCH CLEAR ANCE OR APPRO ISRA IS NOT NECES XIMENA. Not Available [facility] ([facility]) [address] [facility], [place], [address], 10/24/2016 11:36:03 09/25/19 15 08/21/2014 MAMMO , diagn ostic , digit al, bilat eral No observ ation record ed. [email or web address] Ronny [address] [facility] [address], [place], [address], 04/17/2016 13:59:31 10/28/19 17 10/27/2016 US, pelvi s, trans abdom inal + trans vagin al No observ ation record ed. [facility] ([facility]) [address] [facility], [place], [address], 11/10/2016 13:56:56 09/21/20 17 MAMMO , scree jermaine, bilat eral No observ ation record ed. [email or web address] Not Available 2016 09:54:17 Result Notes None recorded. Problems Name Problem SNOMED Code Status Onset Date Resolution Date Notes Provider Name and Address Organization Details Recorded Time Vaginal discharge 762790230 Active Abraham perez, [facility] 5 17:08:02 Problem Notes None recorded. Procedures Surgical History Date Name Laterality Status Provider Name and Address Organization Details Recorded Time 7 Date of Last Pap Smear completed ULISES Hoff [facility] 11/10/2016 11:27:41 7 Most Recent Mammogram completed Francisco Singh RN [facility] 10/19/2016 14:35:06 1 Caesarean Section completed Ayana Corona MA [facility] 09/24/2014 12:07:02 Imaging Results None recorded. Procedure Notes None recorded. Medical Equipment None Reported. Allergies No known drug allergies Medications Name Sig Start Date Stop Date Status Note LastModified by Organization Details LastModified Time buspirone hcl 10 mg tabs 10/19 completed Not Available Not Available Not Available metronida zole 500 mg tabs 10/19 completed Not Available Not Available Not Available metronida zole vaginal 0.75 % gel 11/10 completed Not Available Not Available Not Available bupropion hcl sr 200 mg tb12 10/19 completed Not Available Not Available Not Available lisinopri l 20 mg tabs 11/10 completed Not Available Not Available Not Available bupropion hcl sr 150 mg tb12 10/19 completed Not Available Not Available Not Available clonazepa m 1 mg tabs 10/19 completed Not Available Not Available Not Available .08/01 1.5-30 mg-mcg tabs 10/19 completed Not Available Not Available Not Available citalopra m hydrobrom luis antonio 20 mg tabs 10/19 completed Not Available Not Available Not Available trazodone hcl 50 mg tabs 10/19 completed Not Available Not Available Not Available fluoxetin e 40 mg capsule active Not Available Not Available Not Available Qvar 80 mcg/actua tion Metered Aerosol oral inhaler 10/19 completed Not Available Not Available Not Available levetirac etam 500 mg tablet 11/10 completed Not Available Not Available Not Available lisinopri l 20 mg tablet 11/10 completed Not Available Not Available Not Available amlodipin e 5 mg tablet active Not Available Not Available Not Available oxycodone -acetamin ophen 5 mg-325 mg tablet 10/19 completed Not Available Not Available Not Available alprazola m 0.5 mg tablet active Not Available Not Available Not Available Metrogel Vaginal 0.75 % (37.5 mg/5 gram) Insert 1 applicat orful every day by vaginal route at bedtime for 5 days. 10/19 completed Not Available Not Available Not Available diclofena c sodium 75 mg tablet,de layed release 11/10 completed Not Available Not Available Not Available losartan 100 mg tablet 11/10 completed Not Available Not Available Not Available fluoxetin e 20 mg capsule 11/10 completed Not Available Not Available Not Available Ventolin HFA 90 mcg/actua tion aerosol inhaler 10/19 completed Not Available Not Available Not Available (28) 1.5 mg-30 mcg (21)/75 mg (7) tablet Take 1 tablet every day by oral route. 10/19 completed Not Available Not Available Not Available losartan 100 mg-hydroc hlorothia zide 12.5 mg tablet active Not Available Not Available No t Available (28) 10/19 completed pt stated this is the BCP that she is currentl y taking from previous provider in [place] Not Available Not Available Not Available oxycodone 10 mg tablet 10/19 completed Not Available Not Available Not Available Vitals Date Recorded Body height Body mass index (BMI) Body weight Systolic And Diastolic Provider Name and Address Organization Details Last Updated DateTime 09/24/2014 172.72 cm 24.8 kg/m2 42579.556 31 g 118/74 mm[Hg] Ayana Corona MA [place] - [facility] 09/24/2014 11:59:12 Date Recorded Body weight Body mass index (BMI) Body height Systolic And Diastolic Provider Name and Address Organization Details Last Updated DateTime 10/19/2016 58903.74 g 29.2 kg/m2 172.72 cm 108/78 mm[Hg] Francisco Singh RN [facility] 10/19/2016 14:28:57 Date Recorded Body height Body mass index (BMI) Body weight Systolic And Diastolic Provider Name and Address Organization Details Last Updated DateTime 11/10/2016 172.72 cm 29.2 kg/m2 34203.74 g 118/80 mm[Hg] ULISES Hoff [facility] 11/10/2016 11:21:55 Social History Question Answer Notes LastModified by Organizat ion Details LastModified Time Tobacco Smoking Status Former Smoker Francisco Singh RN [facility], [facility] 10/19/2016 14:37:17 Do You Have An Advance Directive? Yes Pt States She Has Living Will, Created Mar, 2016. AMP 11/10/2016 Information not available 11/10/2016 Is Blood Transfusion Acceptable In An Emergency? Yes Information not available 09/24/2014 What Is Your Level Of Caffeine Consumption? Moderate Information not available 10/19/2016 How Much Tobacco Do You Chew? None Information not available 09/24/2014 What Type Of Diet Are You Following? REGULAR Information not available 09/24/2014 Education 4 Year College Information not available 09/24/2014 Live Alone Or With Others? With Others Information not available 09/24/2014 What Was The Date Of Your Most Recent Tobacco Screening? 10/19/2016 Information not available 09/26/2018 How Many Children Do You Have? 1 Information not available 09/24/2014 Performs Monthly Self-breast Exam? Yes Information not available 09/24/2014 Do You Use Protection During Sex? No Information not available 09/24/2014 What Is Your Relationship Status? Single Information not available 09/24/2014 Seat Belts Used Routinely Yes Information not available 09/24/2014 Are You Sexually Active? No [email or web address] Information not available 10/19/2016 General Stress Level High Information not available 09/24/2014 Do You Use Sunscreen Routinely? Yes Information not available 09/24/2014 Sex: Unknown Functional Status Question Answer Note LastModified by Organizat ion Details LastModified Time What is your level of alcohol consumption? 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 Occasional Information not available 09/24/2014 Mental Status None recorded. Family History Relationship Description Onset Age of this Age Resolved Age Notes LastModified by Organization Details LastModified Time Father Hypertensive disorder [email or web address] Not available 10/19 14:37:06 Medical History Condition Response Coronary Artery Disease N Kidney Cyst N Blood Diseases N Hyperthyroidism N Blood disorders N Blood Transfusion N MRSA N Emphysema N Depression Y COPD N Blood Clots N Pneumonia N Premature N Peripheral Arterial Disease N Edema N TIA N Headaches/Migraines N Anxiety Disorder Y Obesity N Polyps N Infertility N Acid Reflux (GERD) N Hematuria N Stroke N Neck Injury N Polio N Hospital Admission other than N Neurologic Disorder N Other Sleep Disorders N Rheumatoid Arthritis N Fibromyalgia N Abdominal Aortic Aneurysm Repair N Kidney Disease N Heart Conditions N Heart Disease/Heart Problems N Hospitalizations N Brain Tumors N Acne N Skin Problems N Eating Disorder N Meningitis N Constipation N Tuberculosis N Cerebral Palsy N Myocardial Infarction N Asthma N Substance Abuse N Peripheral Vascular Disease N Vertigo N Sleep Disorder N Cirrhosis N Pulmonary Embolism N Chicken Pox N Hematologic Disease N Flomax Use Past or Present N Anxiety/Depression Y Thyroid Disease N Colon Cancer N Lung Disease N Glaucoma N Developmental or Behavioral Disorders N Bipolar N Pacemaker N Diverticulitis/Diverticulosis N Orthopedic Problems N Anesthesia Complications N Orthotics N Head Injury/Concussion N Congenital Anomalies N Gutierrez Bite N Chronic Kidney Disease N Endometriosis N Liver Disease N Schizophrenia N Dialysis N Speech Delay N Chronic Obstructive Pulmonary Disease N Parkinson's Disease N Thyroid Problems N GI Problems N Developmental Delay N Anemia N Multiple Sclerosis N Immune System Disorder N Colon Polyps N Heart Attack (CA) N Diabetes N Cardiomyopathy N Blood Transfusions N Heart Problems/Murmur N Eye Trauma N Congestive Heart Failure (CHF) N Valvular Heart Disease N Hyperlipidemia N Double Vision N Abuse/Domestic Violence N Hepatitis B N Lupus N Epilepsy/Seizures N Reflux/GERD N Aneurysm Y Heart Disease N Bronchitis N Pre-Eclampsia N Hypertension Y Heart Failure N Other N Gout N High Blood Pressure Y Atrial Fibrillation N Kidney Stones N Head Trauma/Injury N Congenital Heart Disease N Spine Problems N Gastrointestinal Disease N Lung Mass N Sinusitis N Obstructive Sleep Apnea N Muscle, Joint, or Bone Problems N Autoimmune disease N Vision or Eye Problems N Arthritis N Blood Clot N Cancer N Seasonal allergies N Leg or Foot Ulcers N Raynaud's Disease N Aortic Aneurysm N Arrhythmia N Headaches N Heart Problems N Ambloypia N Ear or Hearing Problems N Hyperparathyroidism N Migraines N Artificial Joints N Kidney or Bladder Problems N NSAID Use N Encephalitis N PTSD N Ulcers N Prostate Hypertrophy N Bleeding Disorder N AIDS/HIV N Urinary Tract Infection N Back Problems N Allergies N Atrial Flutter N GERD/Reflux N Hepatitis N Autism Spectrum Disorder (ASD) N Breast Cancer N Hernia N Hypothyroidism N Breast Problem N Genitourinary Disease N Deep Vein Thrombosis N Varicose Veins N Cystic Fibrosis N Hearing Loss N Developmental Problems N Carotid Disease N Vitamin D Deficiency N ADHD N Bladder or Kidney Problems N High Cholesterol N [place] N Valvular Abnormalities N Psychiatric/Mental Health Condition N Organ Transplant N Foot Deformity N Allergies/Hayfever N Dyslipidemia N Hyponatremia N Diabetic Eye Disease N Osteoporosis/Osteopenia N Back Pain N Proteinuria N Mental Illness N Neurological Problems N Ovarian Cancer N Bedwetting N Seizures/Epilepsy N Kidney Failure N Ocular trauma N Diverticulitis N Dementia N Sleep Apnea N Mental Problems N Warfarin Management N Osteoporosis N Gynecological History Statement/Question Response Abnormal Pap Y Flow Moderate On BCP's at Conception? N STIs/STDs N HPV Vaccine N Duration of Flow (days) 4 Most Recent Mammogram 06/03/2016 Age at Menarche 13 Current Control Method None Age at First Child 40 Frequency of Cycle (Q days) 28 Sexually Active? N Menses Monthly Y Date of Last Pap Smear 10/19/2016 Sexual Problems? 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 will treat with Metrogel. 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 Since she is 46 and having heavy periods offered endometria l biopsy and counseled about procedure. she agreed. Explained patient that she need to bring someone with her on the day of procedure to drive her back home [id number] [facility] [facility] [address] [place] [phone] 11/10/2016 11:04:57 11/10/2016 15:11:43 Uterine leiomyoma 09038105 D25.9 D/W Patient lab work, PAP, Nuswab and ultrasound results. Counseled about it. She refused endometria l biopsy today because she is on her periods. She wanted to come back in 2 months to do endometria l biopsy. Since she say she has HTN, Cerebral aneurysm counseled about different forms of progestero ne only medication s like ortho-micr onor, Depo Provera, Nexplanon, progestero ne IUD. She refused any medical management . She say since her periods are bearable she does not want any form of treatment for her periods. She say if her periods get heavy she will make an appointmen t. Genital he rpes simplex [id number] A60.9 counseled about it and safe sex. she refuses any outbreaks Hyperlipidemia 62844680 E78.5 Advised to f/u with PCP Health Concerns Section Related Observation LastModified by Organization Detai ls LastModified Time None Recorded Concern Status LastModified by Organization Details LastModified Time None Recorded Advance Directives Directive Y: Pt states she has Living Will, created Mar, 2016. AMP 11/10/2016 Payers Insurance Date Sequence Insurance Name Policy Number Policy Saldivar Covered Member ID Saldivar Member ID Guarantor Name 11/07/2016 1 ON LICENSE OF [facility] (MEDICAID HMO) Steve Kishore [id number] Steve Novak Notes Date Note Type Note Provider Name and Address Organization Details Recorded Time 10/19/2016 text/html Annual GYNReport ed bypatient.History: no gynecologic complaints Menstrual cycle:Menorrhagia; c/o heavy bleeding. Changes 2 tampons every 3 hours since 1 year. Associated with clots Urinary symptoms:No hematuria; No incontinence Vulva:No genital lesion Vagina:Normal vaginal discharge Breast:No breast pain; No breast lump; No nipple discharge Current Contraception:Not sexually active Sexual complaints:No sexual complaints; No pain during intercourse; Normal libido Menopausal Symptoms:No menopausal symptoms; Normal vaginal lubrication Psychological symptoms:No depression; No anxiety; No PMDD Preventive measures:Encourage self breast examination; Encourage regular exercise; Encourage no tobacco use; Encourage regular mammograms starting age 40; Followed with yearly pap smears; History of abnormal pap smear/cervical dysplasia; Needs to schedule mammogram; also counseled about calcium intake and advised to start over the counter calcium treatment. Frank Pollard MD Attn: Accounting,[address] [place], [address], [facility] 10/19/2016 15:20:27 11/10/2016 text/html Came for follow up on test results. 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 she say her periods are not that bad at present time. 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 Supervisor Status 09/25/19 15 1 CLOSED Fetus Data First Name Last Name Admitted to NICU Weight (g) Sex Living Outcome Pediatric Complications Fetus ID Race Codes Race Delivery Type [id number] 848 F Full Term [id number] Isaac Calculation Initial Isaac Date Initial Exam Date Initial Exam Provider Initial Ultrasound Date Last Menstrual Period Date Ultra Sound Weeks Gestation 0 Eighteen To Twenty Week Isaac Update Ultra Sound Date Fundal Height At Umbil Quickening Date Ultra Sound Latest Weeks Gestation Final Isaac Confirmed By Final Isaac Confirmed Date Final Isaac Date Ultra Sound Latest Days Gestation 0 0 Menstrual History Last Menstrual Date Menses Monthly On Bcp Conception Prior Menses Frequency Hcg Plus Date Menarche Onset Age Delivery Information Delivery Date Delivery Type Labor Anesthesia Weeks Gestation Incision Type Labor Labor Length Hrs Delivered By Post Complications Tubal Sterilization Discharge Date Comments 1 Regional-Sp inal 37 false Mandy Discharge Information Feeding Method Contraceptive Method Maternal HG B and HCT Levels
--- OUTSIDE RECORDS SUMMARY | 2024-09-18 11:57 | XMS_ITS | Clinical Summary ---
Author Organization [facility] Address [address] [place] [place] [address] Care Team Providers Care Switchboard And Control Room Operator Name Role Phone Rene Mejia MD Primary Care Provider [phone] Source Comments [facility],non-owned Affiliates and Associated Physician Practices is amultiple site organization consisting of ambulatory clinics and hospital sitesin [place], [place], [place] and [place]. This disclosure is being madepursuant to the Care Everywhere program and may not contain all information available regarding this patient. Last updated 17.[facility] Allergies Active Allergy Reactions Criticality Noted Date Comments Sulfa Drugs Other 08/14/2023 Medications * Be aware that medications may not be up to date on this document. Alwaysverify current medications with the patient. FLUoxetine (PROZAC) 20 MG tablet Take 2 (two) tablets by mouth Active losartan-hydroC HLOROthiazide (HYZAAR) 100-12.5 MG tablet Take 1 tablet by mouth Active losartan-hydroC HLOROthiazide (HYZAAR) 100-12.5 MG tablet 7 Active amLODIPine (NORVASC) 5 MG tablet 7 Active atorvastatin (Lipitor) 10 MG tablet Take 1 tablet every day by oral route at bedtime for 90 days. 4 Active buPROPion XL 24hr (Wellbutrin-XL) 150 MG tablet Take 1 (one) tablet by mouth once daily 4 Active busPIRone (Buspar) 10 MG tablet Take 1 tablet twice a day by oral route as needed for 30 days. 4 Active levonorgestrel (Mirena, 52 MG,) 20 MCG/DAY IUD Take 1 device by intrauterine route. Active Progesterone 100 MG capsule Take 1 (one) capsule by mouth 4 Active tretinoin (Retin-A) 0.05 % cream APPLY A PEA-SIZED AMOUNT TOPICALLY TO ENTIRE FACE EVERY NIGHT AT BEDTIME 3 Active Active Problems Problem Noted Date Diagnosed Date Hyperlipidemia 08/22/2022 Anxiety disorder 03/22/2022 Vitamin B12 deficiency (non anemic) 05/13/2019 History of craniotomy 12/16/2018 Overview (08/14/2023): hx avm Aneurysm 03/10/2016 Social History Tobacco Use Types Packs/Day Years Used Date Smoking Tobacco: Never Assessed Comments Unknown Sex and Gender Information Value Date Recorded Sex Assigned at Not on file Legal Sex Female 4:12 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 Gender Identity Not on file Sexual Orientation Not on file Last Filed Vital Signs Vital Sign Reading Time Taken Comments Blood Pressure 126/86 08/14/2023 12:56 PM CDT Pulse 84 08/14/2023 12:56 PM CDT Temperature 37.2 C (99 F) 08/14/2023 12:56 PM CDT Respiratory Rate 28 03/12/2017 10:13 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 Oxygen Saturation 97% 08/14/2023 12:56 PM CDT Inhaled Oxygen Concentration - - Weight 95.3 kg (210 lb) 08/14/2023 12:56 PM CDT Height 172.7 cm (5' 8) 08/14/2023 12:56 PM CDT Body Mass Index 31.93 08/14/2023 12:56 PM CDT Plan of Treatment Health Maintenance Due Date Last Done Comments COLON MONITORING 1971 COLONOSCOPY - COLON CA SCREENING 1971 CT COLONOGRAPHY - COLON CA SCREENING 1971 FIT - COLON CA SCREENING 1971 FLEX SIG - COLON CA SCREENING 1971 MAMMOGRAM 1971 DTAP/TDAP/TD VACCINES (1 - Tdap) 11/16/1990 HEPATITIS B VACCINE (1 of 3 - 19+ 3-dose series) 11/16/1990 PAP SMEAR 11/16/1992 PNEUMOCOCCAL VACCINE 50+ (1 of 1 - PCV) 11/16/2021 ZOSTER VACCINE (1 of 2) 11/16/2021 COVID-19 VACCINE (4 - season) 2023 01/21/2022, 01/07/2021, 04/24/2020, Additional history exists DEPRESSION SCREENING 03/05/2024 INFLUENZA VACCINE (#1) 2024 2, 12/10/2019, 12/18/2018 COLOGUARD (AGES 45-75) - COLON CA SCREENING 04/08/2025 04/08/2022 Colorectal Cancer Screening 04/08/2025 SCREENING FOR DIABETES 05/21/2026 4, 05/22/2023, 05/22/2023, Additional history exists HEPATITIS C SCREENING Completed 03/09/2016 HIV SCREENING Completed 03/09/2016 HIB VACCINE Aged Out No longer eligi ble based on patient's age to complete this topic HPV VACCINE Aged Out No longer eligi ble based on patient's age to complete this topic MENINGOCOCCAL (Group B) VACCINE SHARED DECISION-MAKING Aged Out No longer eligible based on patient's age to complete this topic MENINGOCOCCAL GROUPS A/C/Y/W VACCINE Aged Out No longer eligible based on patient's age to complete this topic Procedures Procedure Name Priority Date/Time Associated Diagnosis Comments BASIC METABOLIC PANEL (CALCIUM TOTAL) Routine 03/30/2016 3:37 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 HEPATITIS SCREEN ACUTE Routine 03/09/2016 11:46 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 HIV-1 HIV-2 ANTIGEN/ANTIBODY Routine 03/09/2016 11:46 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 from Last 3 Months or Most Recently Relevant to Health Maintenance Results * (ABNORMAL) BASIC METABOLIC PANEL (CALCIUM TOTAL) (03/30/2016 3:37 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) [facility] BUN 5(L) 7 - 26 mg/dL [facility] Creatinine 0.6 0.6 - 1.2 mg/dL [facility] Sodium 138 136 - 145 mmol/L [facility] Potassium 3.4(L) 3.5 - 4.5 mmol/L [facility] Chloride 106 98 - 107 mmol/L [facility] CO2 25 22 - 29 mmol/L [facility] Glucose 99 70 - 115 mg/dL [facility] Calcium 8.1(L) 8.4 - 10.2 mg/dL [facility] Anion Gap 10 8 - 18 [facility] BUN/Creatinine Ratio 8 7 - 23 [facility] Osmolality Calculated 283 270 - 300 mOsm/kg [facility] eGFR >60 >60 mL/min/1.7 3 m2 [facility] Blood specimen (specimen) BLOOD SPECIMEN / Unknown 03/30/2016 3:37 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 03/30/2016 3:58 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 us Yessica Espana PA-C LAB - CHEMISTRY ORDERA BLES Final Result Performing Organization Address City/[facility]/ZIP Co de Phone Number [address] [phone] * HIV-1 HIV-2 ANTIGEN/ANTIBODY (03/09/2016 11:46 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) [facility] HIV Antigen/Antibod y 1 & 2 Non-reacti ve Non-react shayy [facility] Comment: Neither HIV-1 p24 Antigen nor HIV-1/HIV-2 Antibodies are detected. Blood specimen (specimen) BLOOD SPECIMEN / Unknown 03/09/2016 11:46 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 03/09/2016 12:18 PM DISTRIBUTION FIELD ENGINEER us Amy Dorsey MD LAB - HEMATOLOGY ORDERA BLES Final Result [address] [phone] * HEPATITIS SCREEN ACUTE (03/09/2016 11:46 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) Hepatitis A Virus Antibody IgM Non-react [facility] Hepatitis B Virus Surface Antigen Non-react [facility] Hepatitis B Core Virus Antibody IgM Non-react [facility] Hepatitis C Antibody Non-react [facility] Comment: Hepatitis C Antibody screen indicates no serologic evidence of past or current infection with Hepatitis C Virus. Patients with unexplained liver disease who are immunocompromised or suspected of having acute Hepatitis C infection may benefit from Nucleic Acid Test ([facility]LEY) for Hepatitis C Viral RNA to confirm Hepatitis C status. 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
--- OUTSIDE RECORDS SUMMARY | 2024-09-18 11:57 | XMS_ITS | Data Portability ---
Author Organization [place] - [facility] [employer], Main Office Address [address] [place] [address] Care Team Providers Care German Tutor Name Role Phone JE FIGUEREDO Primary Care Provider Assessment Encounter Date Assessment Date Assessment LastModified by Organization Details LastModified Time 08/27/2023 08/27/2023 52 yo F with - HLD - HTN - DEPRESSION - ANXIETY DISORDER - VIT D DEFICIENCY - MULTIPLE SKIN LESIONS - OBESITY I - H/O CEREBRAL AV MALFORMATION - H/O CRANIOTOMY (03/21) - H/O VIT B12 DEFICIENCY Annual labs: 05/01/23. Annual labs: 04/15/22. CXR: 09/21/21. D/w pt in detail about her conditions, recent labs & imagines and [place] care. [place] Meds as directed. Diet and exercise explained in detail. Explained about different options for her. BP diary education given and call us if any concerns. Educated pt about alarming symptoms to monitor at home and call us back Or get checked in ED. Cont f/u with Derm as per schedule. Cont f/u with Gyne as per schedule. Cont f/u with Neurosurgeon at [facility] as per schedule. Offered to refer to Counsellor/Psyc h; but pt declined. HM: WWE - 10/25, normal as per pt. Cont f/u with Gyne as per schedule. Mammo - 08/22/22, normal. Ordered. Colonoscopy - Never. Pt declined. Cologuard 04/08/22, neg. DEXA - 04/24/22, normal. Flu - Pt gets at her work. Tdap - 2014. Pneumo - 04/24/23. Shingrix - At pharmacy/HD. F/u in 3 months. Lipids in 11/26. Annual labs in 04/29. Not available 08/27/2023 15:03:07 11/27/2023 11/27/2023 53 yo F with - HLD, improved - HTN - DEPRESSION - ANXIETY DISORDER - VIT D DEFICIENCY - MULTIPLE SKIN LESIONS - OBESITY I - H/O CEREBRAL AV MALFORMATION - H/O CRANIOTOMY (03/21) - H/O VIT B12 DEFICIENCY Annual labs: 05/01/23. Annual labs: 04/15/22. CXR: 09/21/21. D/w pt in detail about her conditions, recent labs & imagines and further plan of care. [place] Meds as directed. Diet and exercise explained in detail. Explained about different options for her. BP diary education given and call us if any concerns. Educated pt about alarming symptoms to monitor at home and call us back Or get checked in ED. Cont f/u with Derm as per schedule. Cont f/u with Gyne as per schedule. Cont f/u with Neurosurgeon at [facility] as per schedule. Offered to refer to Counsellor/Psyc h; but pt declined. HM: WWE - 10/25, normal as per pt. Cont f/u with Gyne as per schedule. Mammo - 09/19/23, normal. Colonoscopy - Never. Pt declined. Cologuard 04/08/22, neg. DEXA - 04/24/22, normal. Flu - Pt gets at her work. Tdap - 2014. Pneumo - 04/24/23. Shingrix - At pharmacy/HD. F/u in 3 months. Annual labs in 04/29. [email or web address] Not available 11/27/2023 17:08:03 03/11/2024 03/11/2024 53 yo F with - DEPRESSION - ANXIETY DISORDER - HTN - HLD - VIT D DEFICIENCY - MULTIPLE SKIN LESIONS - OBESITY I - H/O CEREBRAL AV MALFORMATION - H/O CRANIOTOMY (03/21) - H/O VIT B12 DEFICIENCY Annual labs: 05/01/23. Annual labs: 04/15/22. CXR: 09/21/21. D/w pt in detail about her conditions, recent labs & imagines and further [place] of care. [place] Meds as directed. Diet and exercise explained in detail. Explained about different options for her. BP diary education given and call us if any concerns. Educated pt about alarming symptoms to monitor at home and call us back Or get checked in ED. Cont f/u with Derm as per schedule. Cont f/u with Gyne as per schedule. [facility] as [facility] schedule. Offered to refer to Counsellor/Psyc h; but pt declined. HM: WWE - 10/25, normal as per pt. Cont f/u with Gyne as per schedule. Mammo - 09/19/23, normal. Colonoscopy - Never. Pt declined. Cologuard 04/08/22, neg. DEXA - 04/24/22, normal. Flu - Pt gets at her work. Tdap - 2014. Pneumo - 04/24/23. Shingrix - At pharmacy/HD. F/u in 2-3 months. Annual labs in 04/29. [email or web address] Not available 03/11/2024 16:28:31 05/27/2024 05/27/2024 53 yo F with - WELL ADULT VISIT - DEPRESSION - ANXIETY DISORDER - HTN - HLD - VIT D DEFICIENCY - MULTIPLE SKIN LESIONS - OVERWEIGHT - H/O OBESITY I - H/O CEREBRAL AV MALFORMATION - H/O CRANIOTOMY (03/21) - H/O VIT B12 DEFICIENCY Annual labs: 05/01/23. Annual labs: 04/15/22. CXR: 09/21/21. D/w pt in detail about her conditions, recent labs & imagines and further plan of care. [place] do routine labs. [place] Meds as directed. Diet and exercise explained in detail. Explained about different options for her. BP diary education given and call us if any concerns. Educated pt about alarming symptoms to monitor at home and call us back Or get checked in ED. Cont f/u with Derm as per schedule. Cont f/u with Gyne as per schedule. Cont f/u with Neurosurgeon at [facility] as per schedule. Offered to refer to Counsellor/Psyc h; but pt declined. HM: WWE - 10/25, normal as per pt. Cont f/u with Gyne as per schedule. Mammo - 09/19/23, normal. Colonoscopy - Never. Pt declined. Cologuard 04/08/22, neg. DEXA - 04/24/22, normal. Flu - Pt gets at her work. Tdap - 05/27/24. Pneumo - 04/24/23. Shingrix - At pharmacy/HD. F/u in 2-3 weeks. Annual labs in 05/28. Not available 05/27/2024 17:35:40 07/02/2024 07/02/2024 53 yo F with - DEPRESSION - ANXIETY DISORDER - HTN - HLD - VIT D DEFICIENCY - MULTIPLE SKIN LESIONS - OVERWEIGHT - H/O OBESITY I - H/O CEREBRAL AV MALFORMATION - H/O CRANIOTOMY (03/21) - H/O VIT B12 DEFICIENCY Annual labs: 06/25/24. Annual labs: 05/01/23. Annual labs: 04/15/22. CXR: 09/21/21. D/w pt in detail about her conditions, recent labs & imagines and further [place] of care. [place] Meds as directed. Diet and exercise explained in detail. Explained about different options for her. BP diary education given and call us if any concerns. Educated pt about alarming symptoms to monitor at home and call us back Or get checked in ED. Cont f/u with Derm as per schedule. Cont f/u with Gyne as per schedule. Cont f/u with Neurosurgeon at [facility] as per schedule. Offered to refer to Counsellor/Psyc h; but pt declined. HM: WWE - 10/25, normal as per pt. Cont f/u with Gyne as per schedule. Mammo - 09/19/23, normal. Colonoscopy - Never. Pt declined. Cologuard 04/08/22, neg. DEXA - 04/24/22, normal. Flu - Pt gets at her work. Tdap - 05/27/24. Pneumo - 04/24/23. Shingrix - At pharmacy/HD. F/u in 3 months. Annual labs in 05/28. Not available 07/02/2024 17:25:51 Plan of Treatment Reminders Order Date Submit Date Provider Last Modified By Organization Details Last Modified Time Details Appointments Follow Up 15 2024 02:00P Marietta Figueredo MD Not available Not available Not available Lab CBC w/ auto diff 2024 [email or web address] [facility], [address], [address], [place], [address], 06/06/2024 09:21:43 CMP, serum or plasma 2024 [email or web address] [facility], [address], [address] [address], [place], [address], 06/06/2024 09:21:43 lipid panel, serum 2024 [id number] [employer] [facility], [address], [address] [address], [place], [address], 06/06/2024 09:21:44 TSH, serum, reflex free T4 2024 [email or web address] [facility], [address], [address], [place], [address], 06/06/2024 09:21:44 urinalysi s complete, reflex culture 2024 [email or web address] [employer] [facility], [address], [place], [place], [address], 06/06/2024 09:21:44 HbA1c (hemoglob in A1c), blood 2024 [email or web address] [facility], [address], [place], [place], [address], 06/06/2024 09:21:44 vitamin D, 25-hydrox y, total, serum 2024 [email or web address] [employer] [facility], [address], [place], [place], [address], 06/06/2024 09:21:44 measles igg Ab, titer, serum 2024 [email or web address] [facility] [facility], [address], [address] [address], [place], [address], 06/06/2024 09:21:44 rubella Ab, titer, serum 2024 025 [email or web address] [facility], [address], [place], [address], 06/06/2024 09:21:44 rubella igg Ab, titer, serum 2024 025 [email or web address] [facility], [address], [address], [place], [address], 06/06/2024 09:21:45 lipid panel, serum 2023 024 [place] [employer] [facility], [address], [place], [address], 11/24/2023 05:03:18 Referral None recorded. Procedures None recorded. Surgeries None recorded. Imaging MAMMO, screening , bilateral 2023 024 [email or web address] [id number] Not available 09/10/2023 09:55:46 Medication Orders irbesarta n 150 mg-hydroc hlorothia zide 12.5 mg tablet 2024 025 [place] [facility]286, [address], [place], [id number], 07/02/2024 17:24:22 amlodipin e 5 mg tablet 2024 025 [place] [facility]72209, [address], [place], [id number], 07/02/2024 17:24:21 buspirone 10 mg tablet 2024 025 [place] [facility], [address], [place], [id number], 07/02/2024 17:24:20 alprazola m 0.5 mg tablet 2024 025 [facility] #28546, [address], [place], [id number], 07/02/2024 17:24:22 atorvasta tin 20 mg tablet 2024 025 [facility] #73469, [address], [place], [id number], 07/02/2024 17:24:15 bupropion HCl XL 150 mg 24 hr tablet, extended release 2024 [facility] #80947, [address] [place] [address], [id number], 07/02/2024 17:24:21 irbesarta n 150 mg-hydroc hlorothia zide 12.5 mg tablet 2024 025 [facility] #13840, [address] [place] [address], [id number], 05/27/2024 17:28:32 amlodipin e 5 mg tablet 2024 025 [facility] #55743, [address] [place] [address], [id number], 05/27/2024 17:28:30 buspirone 10 mg tablet 2024 025 [facility] #24709, [address] [place] [address], [id number], 05/27/2024 17:28:33 alprazola m 0.5 mg tablet 2024 025 [facility] #33406, [address] [place] [address], [id number], 05/27/2024 17:28:38 atorvasta tin 20 mg tablet 2024 025 [facility] #59243, [address], [place], [id number], 05/27/2024 17:28:39 bupropion HCl XL 150 mg 24 hr tablet, extended release 2024 [facility] #55225, [address] [place] [address], [id number], 05/27/2024 17:28:34 irbesarta n 150 mg-hydroc hlorothia zide 12.5 mg tablet 2024 025 [facility] #90739, [address] [place] [address], [id number], 03/11/2024 17:03:12 amlodipin e 5 mg tablet 2024 025 [facility] #06096, [address] [place] [address], [id number], 03/11/2024 17:03:13 buspirone 10 mg tablet 2024 025 [facility] #30463, [address] [place] [address], [id number], 03/11/2024 17:03:11 alprazola m 0.5 mg tablet 2024 025 [facility] #15089, [address] [place] [address], [id number], 03/11/2024 17:05:04 atorvasta tin 20 mg tablet 2024 025 [facility] #20250, [address], [place], [id number], 03/11/2024 17:03:18 bupropion HCl XL 150 mg 24 hr tablet, extended release 2024 025 [facility] #10371, [address] [place] [address], [id number], 03/11/2024 17:03:14 irbesarta n 150 mg-hydroc hlorothia zide 12.5 mg tablet 2023 024 [facility] #50492, [address] [place] [address], [id number], 11/27/2023 17:02:56 amlodipin e 5 mg tablet 2023 024 [facility] #04771, [address] [place] [address], [id number], 11/27/2023 17:02:57 buspirone 10 mg tablet 2023 024 [facility] #30019, [address] [place] [address], [id number], 11/27/2023 17:02:55 atorvasta tin 20 mg tablet 2023 024 [facility] #90603, [address] [place] [address], [id number], 11/27/2023 17:03:05 bupropion HCl XL 150 mg 24 hr tablet, extended release 2023 024 [facility] #21179, [address] [place] [address], [id number], 11/27/2023 17:03:03 irbesarta n 150 mg-hydroc hlorothia zide 12.5 mg tablet 2023 024 [facility] #89075, [address], [place], [id number], 08/27/2023 15:03:16 amlodipin e 5 mg tablet 2023 024 [facility] #96087, [address], [place], [id number], 08/27/2023 15:03:16 buspirone 10 mg tablet 2023 024 [facility] #46944, [address], [place], [id number], 08/27/2023 15:15:26 atorvasta tin 20 mg tablet 2023 024 [facility] #02593, [address], [place], [id number], 08/27/2023 15:03:17 bupropion HCl XL 150 mg 24 hr tablet, extended release 2023 024 [facility] #18874, [address], [place], [id number], 08/27/2023 15:03:17 Patient TargetsNo targets recorded. Patient Instructions Encounter Date Encounter Id Patient Instructions Last Modified By Organization Details Last Modified Time 08/27/2023 [id number] learning about high cholesterol [email or web address] Not available 08/27/2023 15:03:01 high cholesterol : care instructions [email or web address] Not available 08/27/2023 15:03:01 starting a weigh t loss plan: care instructions [email or web address] Not available 08/27/2023 15:03:01 11/27/2023 [id number] starting a weigh t loss plan: care instructions [email or web address] Not available 11/27/2023 17:02:49 learning about high cholesterol Not available 11/27/2023 17:02:49 high cholesterol : care instructions Not available 11/27/2023 17:02:49 03/11/2024 [id number] starting a weigh t loss plan: care instructions [email or web address] Not available 03/11/2024 17:03:04 learning about high cholesterol [email or web address] Not available 03/11/2024 17:03:04 high cholesterol : care instructions Not available 03/11/2024 17:03:04 05/27/2024 [id number] learning about high cholesterol [email or web address] Not available 05/27/2024 17:28:21 high cholesterol : care instructions Not available 05/27/2024 17:28:21 starting a weigh t loss plan: care instructions [email or web address] Not available 05/27/2024 17:28:21 07/02/2024 [id number] starting a weigh t loss plan: care instructions [email or web address] Not available 07/02/2024 17:24:07 learning about high cholesterol [email or web address] Not available 07/02/2024 17:24:07 high cholesterol : care instructions [email or web address] Not available 07/02/2024 17:24:07 Reason for Referral None Reported. Results Created Date Observation Date Name Description Value Unit Range Abnormal Flag Note LastModifiedBy Organization Detail LastModifiedTime 08/07/1908/07/2023 LIPID PANEL , STAND ANOOP cholesterol, total 182 mg/dL <200 normal Not Available [facility] [facility] [address] [place], [address], 08/07/2023 17:36:39 08/07/1908/07/2023 LIPID PANEL , STAND ANOOP HDL cholesterol 65 mg/dL > or = 50 normal Not Available [facility] [facility] [address] [place], [address], 08/07/2023 17:36:39 08/07/1908/07/2023 LIPID PANEL , STAND ANOOP triglyceride s 70 mg/dL <150 normal Not Available [facility] [facility] [address] [place], [address], 08/07/2023 17:36:39 08/07/19 24 08/07/2023 LIPID PANEL , STAND ANOOP LDL-choleste rol 101 mg/dL _(allie c) high Refer ence range : <100 Mickey able range <100 mg/dL for prima ry preve ntion ; <70 mg/dL for patie nts with CHD or diabe tic patie nts with > or = 2 CHD risk facto rs. LDL-C is now calcu lated using the Radha n-Hop kins calcu antolin n, which is a valid ated novel metho d provi ding lan r accur acy than the Fried jacinta equat ion in the estim ation of LDL-C . Radha luque SS et al. SAUL. 2013; 310(1 9): 2061- 2068 (http ://ed ucati on.Qu [employer]. Tuee/f aq/FA Q164) Not Available [facility] [address], [address], 08/07/2023 17:36:39 08/07/19 24 08/07/2023 LIPID PANEL , STAND ANOOP chol/HDLC ratio 2.8 (calc ) <5.0 normal Not Available [facility] [address], [address], 08/07/2023 17:36:39 08/07/19 24 08/07/2023 LIPID PANEL , STAND ANOOP non HDL cholesterol 117 mg/dL _(allie c) <130 normal For patie nts with diabe mckenna plus 1 major ASCVD risk facto r, treat ing to a non-H DL-C goal of <100 mg/dL (LDL- C of <70 mg/dL ) is jolene edmond optio n. Not Available [facility] [address], [address], 08/07/2023 17:36:39 11/23/19 24 11/24/2023 LIPID PANEL , STAND ANOOP cholesterol, total 124 mg/dL <200 normal Not Available [facility] [facility] [address], [address], 11/24/2023 05:03:17 11/23/19 24 11/24/2023 LIPID PANEL , STAND ANOOP HDL cholesterol 47 mg/dL > or = 50 low Not Available [facility] [id number] [place] [address], [address], 11/24/2023 05:03:17 11/23/19 24 11/24/2023 LIPID PANEL , STAND ANOOP triglyceride s 40 mg/dL <150 normal Not Available [address], [address], 11/24/2023 05:03:17 11/23/19 24 11/24/2023 LIPID PANEL , STAND ANOOP LDL-choleste rol 66 mg/dL _(allie c) normal Refer ence range : <100 Mickey able range <100 mg/dL for prima ry preve ntion ; <70 mg/dL for patie nts with CHD or diabe tic patie nts with > or = 2 CHD risk facto rs. LDL-C is now calcu lated using the Radha n-Hop kins calcu antolin n, which is a valid ated novel deyvi carpenter than the Fried jacinta equat ion in the estim ation of LDL-C . Radha luque SS et al. SAUL. 2013; 310(1 9): 2061- 2068 (http ://ed ucati on.Lois salvador Hung[employer]. com/f aq/FA Q164) Not Available [address] [address] [place], [address], 11/24/2023 05:03:17 11/23/19 24 11/24/2023 LIPID PANEL , STAND ANOOP chol/HDLC ratio 2.6 (calc ) <5.0 normal Not Available [facility] [address] [place] [address], [address], 11/24/2023 05:03:17 11/23/19 24 11/24/2023 LIPID PANEL , STAND ANOOP non HDL cholesterol 77 mg/dL _(allie c) <130 normal For patie nts with diabe mckenna plus 1 major ASCVD risk facto r, treat ing to a non-H DL-C goal of <100 mg/dL (LDL- C of <70 mg/dL ) is jolene posadao n. Not Available [address] [address] [place], [address], 11/24/2023 05:03:17 06/26/19 25 06/26/2024 LIPID PANEL , STAND ANOOP cholesterol, total 154 mg/dL <200 normal Not Available [facility] [address] [address] [place], [address], 06/26/2024 21:18:52 06/26/19 25 06/26/2024 LIPID PANEL , STAND ANOOP HDL cholesterol 58 mg/dL > or = 50 normal Not Available [address] [address] [place], [address], 06/26/2024 21:18:52 06/26/19 25 06/26/2024 LIPID PANEL , STAND ANOOP triglyceride s 40 mg/dL <150 normal Not Available [facility] [address] [address] [place], [address], 06/26/2024 21:18:52 06/26/19 25 06/26/2024 LIPID PANEL , STAND ANOOP LDL-choleste rol 85 mg/dL _(allie c) normal Refer ence range : <100 Mickey able range <100 mg/dL for prima ry preve ntion ; <70 mg/dL for patie nts with CHD or diabe tic patie nts with > or = 2 CHD risk facto rs. LDL-C is now calcu lated using the Radha n-Hop kins all luque, which is a valid ated novel pettyo meagan alvarado accur acy than the Fried jacinta equat ion in the estim ation of LDL-C . Radha luque SS et al. SAUL. 2013; 310(1 9): 2061- 2068 (http ://ed ucati on.Qu estDi agnos tics. com/f aq/FA Q164) Not Available [address], [address], 06/26/2024 21:18:52 06/26/19 25 06/26/2024 LIPID PANEL , STAND ANOOP chol/HDLC ratio 2.7 (calc ) <5.0 normal Not Available [address], [address], 06/26/2024 21:18:52 06/26/19 25 06/26/2024 LIPID PANEL , STAND ANOOP non HDL cholesterol 96 mg/dL _(allie c) <130 normal For patie nts with diabe mckenna plus 1 major ASCVD risk facto r, treat ing to a non-H DL-C goal of <100 mg/dL (LDL- C of <70 mg/dL ) is consi dered a fayea kena c optio n. Not Available [address], [address], 06/26/2024 21:18:52 06/26/19 25 06/26/2024 COMPR EHENS NOMAN METAB OLIC PANEL glucose 84 mg/dL 65-99 normal Fasti ng refer ence inter bladimir Not Available [address], [address], 06/26/2024 21:18:54 06/26/19 25 06/26/2024 COMPR EHENS NOMAN METAB OLIC PANEL urea nitrogen (BUN) 20 mg/dL 7-25 normal Not Available [address], [address], 06/26/2024 21:18:54 06/26/19 25 06/26/2024 COMPR EHENS NOMAN METAB OLIC PANEL creatinine 0.90 mg/dL 0.50-1 .03 normal Not Available [address], [address], 06/26/2024 21:18:54 06/26/19 25 06/26/2024 COMPR EHENS NOMAN METAB OLIC PANEL eGFR 77 mL/mi n/1.7 3m2 > or = 60 normal Not Available [address], [address], 06/26/2024 21:18:54 06/26/19 25 06/26/2024 COMPR EHENS NOMAN METAB OLIC PANEL BUN/creatini ne ratio SEE NOTE: (calc ) 6-22 Not Repor ermias: BUN and Creat inine are withi n refer ence range . Not Available [address], [address], 06/26/2024 21:18:54 06/26/19 25 06/26/2024 COMPR EHENS NOMAN METAB OLIC PANEL sodium 140 mmol/ L 135-14 6 normal Not Available [address], [address], 06/26/2024 21:18:54 06/26/19 25 06/26/2024 COMPR EHENS NOMAN METAB OLIC PANEL potassium 4.2 mmol/ L 3.5-5. 3 normal Not Available [address], [address], 06/26/2024 21:18:54 06/26/19 25 06/26/2024 COMPR EHENS NOMAN METAB OLIC PANEL chloride 104 mmol/ L 98-110 normal Not Available [address], [address], 06/26/2024 21:18:54 06/26/19 25 06/26/2024 COMPR EHENS NOMAN METAB OLIC PANEL carbon dioxide 29 mmol/ L 20-32 normal Not Available [address], [address], 06/26/2024 21:18:54 06/26/19 25 06/26/2024 COMPR EHENS NOMAN METAB OLIC PANEL calcium 9.8 mg/dL 8.6-10 .4 normal Not Available [address], [address], 06/26/2024 21:18:54 06/26/19 25 06/26/2024 COMPR EHENS NOMAN METAB OLIC PANEL protein, total 6.6 g/dL 6.1-8. 1 normal Not Available [address], [address], 06/26/2024 21:18:54 06/26/19 25 06/26/2024 COMPR EHENS NOMAN METAB OLIC PANEL albumin 4.4 g/dL 3.6-5. 1 normal Not Available [address], [address], 06/26/2024 21:18:54 06/26/19 25 06/26/2024 COMPR EHENS NOMAN METAB OLIC PANEL globulin 2.2 g/dL_ (calc ) 1.9-3. 7 normal Not Available [address], [address], 06/26/2024 21:18:54 06/26/19 25 06/26/2024 COMPR EHENS NOMAN METAB OLIC PANEL albumin/glob ulin ratio 2.0 (calc ) 1.0-2. 5 normal Not Available [address], [address], 06/26/2024 21:18:54 06/26/19 25 06/26/2024 COMPR EHENS NOMAN METAB OLIC PANEL bilirubin, total 0.7 mg/dL 0.2-1. 2 normal Not Available [address], [address], 06/26/2024 21:18:54 06/26/19 25 06/26/2024 COMPR EHENS NOMAN METAB OLIC PANEL alkaline phosphatase 82 U/L 37-153 normal Not Available [address] [address] [place], [address], 06/26/2024 21:18:54 06/26/19 25 06/26/2024 COMPR EHENS NOMAN METAB OLIC PANEL AST 14 U/L 10-35 normal Not Available [address] [address] [place], [address], 06/26/2024 21:18:54 06/26/19 25 06/26/2024 COMPR EHENS NOMAN METAB OLIC PANEL ALT 15 U/L 6-29 normal Not Available [address], [address], 06/26/2024 21:18:54 06/26/19 25 06/26/2024 CBC (INCL UDES DIFF/ PLT) white blood cell count 8.8 thous and/u L 3.8-10 .8 normal Not Available [address], [address], 06/26/2024 21:18:55 06/26/19 25 06/26/2024 CBC (INCL UDES DIFF/ PLT) red blood cell count 4.43 maritza on/uL 3.80-5 .10 normal Not Available [address], [address], 06/26/2024 21:18:55 06/26/19 25 06/26/2024 CBC (INCL UDES DIFF/ PLT) hemoglobin 13.3 g/dL 11.7-1 5.5 normal Not Available [address], [address], 06/26/2024 21:18:55 06/26/19 25 06/26/2024 CBC (INCL UDES DIFF/ PLT) hematocrit 41.1 % 35.0-4 5.0 normal Not Available [address], [address], 06/26/2024 21:18:55 06/26/19 25 06/26/2024 CBC (INCL UDES DIFF/ PLT) MCV 92.8 fL 80.0-1 00.0 normal Not Available [address], [address], 06/26/2024 21:18:55 06/26/19 25 06/26/2024 CBC (INCL UDES DIFF/ PLT) MCH 30.0 pg 27.0-3 3.0 normal Not Available [address], [address], 06/26/2024 21:18:55 06/26/19 25 06/26/2024 CBC (INCL UDES DIFF/ PLT) MCHC 32.4 g/dL 32.0-3 6.0 normal For adult s, a sligh t decre ase in the calcu lated MCHC value (in the range of 30 to 32 g/dL) is most likel y not clini alysa signi fican t; adrien er, it shoul d be inter prete d with cauti on in corre latio n with other red cell hank eters and the patie nt's clini allie condi tion. Not Available [address], [address], 06/26/2024 21:18:55 06/26/19 25 06/26/2024 CBC (INCL UDES DIFF/ PLT) RDW 12.5 % 11.0-1 5.0 normal Not Available [address], [address], 06/26/2024 21:18:55 06/26/19 25 06/26/2024 CBC (INCL UDES DIFF/ PLT) platelet count 304 thous and/u L 140-40 0 normal Not Available [address], [address], 06/26/2024 21:18:55 06/26/19 25 06/26/2024 CBC (INCL UDES DIFF/ PLT) MPV 10.6 fL 7.5-12 .5 normal Not Available [address], [address], 06/26/2024 21:18:55 06/26/19 25 06/26/2024 CBC (INCL UDES DIFF/ PLT) absolute neutrophils 6926 cells /uL 1500-7 800 normal Not Available [address], [address], 06/26/2024 21:18:55 06/26/19 25 06/26/2024 CBC (INCL UDES DIFF/ PLT) absolute lymphocytes 1109 cells /uL 850-39 00 normal Not Available [address], [address], 06/26/2024 21:18:55 06/26/19 25 06/26/2024 CBC (INCL UDES DIFF/ PLT) absolute monocytes 634 cells /uL 200-95 0 normal Not Available [address], [address], 06/26/2024 21:18:55 06/26/19 25 06/26/2024 CBC (INCL UDES DIFF/ PLT) absolute eosinophils 106 cells /uL 15-500 normal Not Available [address], [address], 06/26/2024 21:18:55 06/26/19 25 06/26/2024 CBC (INCL UDES DIFF/ PLT) absolute basophils 26 cells /uL 0-200 normal Not Available [facility] [address], [address], 06/26/2024 21:18:55 06/26/19 25 06/26/2024 CBC (INCL UDES DIFF/ PLT) neutrophils 78.7 % normal Not Available [address], [address], 06/26/2024 21:18:55 06/26/19 25 06/26/2024 CBC (INCL UDES DIFF/ PLT) lymphocytes 12.6 % normal Not Available [address], [address], 06/26/2024 21:18:55 06/26/19 25 06/26/2024 CBC (INCL UDES DIFF/ PLT) monocytes 7.2 % normal Not Available [address], [address], 06/26/2024 21:18:55 06/26/19 25 06/26/2024 CBC (INCL UDES DIFF/ PLT) eosinophils 1.2 % normal Not Available [address], [address], 06/26/2024 21:18:55 06/26/19 25 06/26/2024 CBC (INCL UDES DIFF/ PLT) basophils 0.3 % normal Not Available [address], [address], 06/26/2024 21:18:55 06/26/19 25 06/26/2024 URINA LYSIS , COMPL ETE W/REF MEKHI TO CULTU RE color YELLOW yellow normal Not Available [address], [address], 06/26/2024 21:18:57 06/26/19 25 06/26/2024 URINA LYSIS , COMPL ETE W/REF MEKHI TO CULTU RE appearance CLOUDY clear abnormal Not Available [address], [address], 06/26/2024 21:18:57 06/26/19 25 06/26/2024 URINA LYSIS , COMPL ETE W/REF MEKHI TO CULTU RE specific gravity 1.019 1.001- 1.035 normal Not Available [address], [address], 06/26/2024 21:18:57 06/26/19 25 06/26/2024 URINA LYSIS , COMPL ETE W/REF MEKHI TO CULTU RE pH 6.5 5.0-8. 0 normal Not Available [address], [address], 06/26/2024 21:18:57 06/26/19 25 06/26/2024 URINA LYSIS , COMPL ETE W/REF MEKHI TO CULTU RE glucose NEGATI VE negati ve normal Not Available [address], [address], 06/26/2024 21:18:57 06/26/19 25 06/26/2024 URINA LYSIS , COMPL ETE W/REF MEKHI TO CULTU RE bilirubin NEGATI VE negati ve normal Not Available [address], [address], 06/26/2024 21:18:57 06/26/19 25 06/26/2024 URINA LYSIS , COMPL ETE W/REF MEKHI TO CULTU RE ketones NEGATI VE negati ve normal Not Available [address], [address], 06/26/2024 21:18:57 06/26/19 25 06/26/2024 URINA LYSIS , COMPL ETE W/REF MEKHI TO CULTU RE occult blood 1+ negati ve abnormal Not Available [address], [address], 06/26/2024 21:18:57 06/26/19 25 06/26/2024 URINA LYSIS , COMPL ETE W/REF MEKHI TO CULTU RE protein NEGATI VE negati ve normal Not Available [address], [address], 06/26/2024 21:18:57 06/26/19 25 06/26/2024 URINA LYSIS , COMPL ETE W/REF MEKHI TO CULTU RE nitrite NEGATI VE negati ve normal Not Available [address] [place], [address], 06/26/2024 21:18:57 06/26/19 25 06/26/2024 URINA LYSIS , COMPL ETE W/REF MEKHI TO CULTU RE leukocyte esterase 2+ negati ve abnormal Not Available [address], [address], 06/26/2024 21:18:57 06/26/19 25 06/26/2024 URINA LYSIS , COMPL ETE W/REF MEKHI TO CULTU RE WBC 0-5 /hpf < or = 5 normal Not Available [address], [address], 06/26/2024 21:18:57 06/26/19 25 06/26/2024 URINA LYSIS , COMPL ETE W/REF MEKHI TO CULTU RE RBC NONE SEEN /hpf < or = 2 normal Not Available [address], [address], 06/26/2024 21:18:57 06/26/19 25 06/26/2024 URINA LYSIS , COMPL ETE W/REF MEKHI TO CULTU RE squamous epithelial cells 10-20 /hpf < or = 5 abnormal Not Available [address], [address], 06/26/2024 21:18:57 06/26/19 25 06/26/2024 URINA LYSIS , COMPL ETE W/REF MEKHI TO CULTU RE bacteria FEW /hpf none seen abnormal Not Available [address], [address], 06/26/2024 21:18:57 06/26/19 25 06/26/2024 URINA LYSIS , COMPL ETE W/REF MEKHI TO CULTU RE hyaline cast NONE SEEN /lpf none seen normal Not Available [address], [address], 06/26/2024 21:18:57 06/26/19 25 06/26/2024 URINA LYSIS , COMPL ETE W/REF MEKHI TO CULTU RE note This urine was natalio zed for the prese nce of WBC, RBC, bacte belinda, casts , and other forme d eleme nts. Only those eleme nts seen were repor ermias. Not Available [facility] [place] [address] [place], [address], 06/26/2024 21:18:57 06/26/19 25 06/26/2024 REFLE XIVE URINE CULTU RE reflexive urine culture CULTU RE INDIC ATED - RESUL TS TO FOLLO W Not Available [facility] [place] [address] [place], [address], 06/26/2024 21:18:59 06/26/19 25 06/26/2024 RUBEL LA AB (IGG) , IMMUN E STATU S rubella Ab (IgG), immune status 9.31 index normal Index Inter preta tion ----- ----- ----- ---- <0.90 Not consi stent with immun ity 0.90- 0.99 Equiv ocal > or = 1.00 Consi stent with immun ity The prese nce of rubel la IgG antib adali sugge sts immun izati on or past or curre nt infec tion with rubel la virus . Not Available [facility] [address] [place], [address], 06/26/2024 21:18:59 06/26/19 25 06/26/2024 VITAM IN D,25- OH,TO NAVEED,I A vitamin D,25-oh,tota l,ia 75 NG/mL 30-100 normal Vitam in D Statu s 25-OH Vitam in D: Defic iency : <20 ng/mL Insuf ficie ncy: 20 - 29 ng/mL Optim al: > or = 30 ng/mL For 25-OH Vitam in D testi ng on patie nts on D2-pendleton pplem entat ion and patie nts for whom quant itati on of D2 and D3 fract ions is requi red, the [facility](TM ) 25-OH VIT D, (D2,D 3), LC/MS /MS is recom karis d: order code 00922 (kong ents >2yrs ). See Note 1 Note 1 For addit ional infor kori garcia e refer to http: //[facility] [place] stDia gnost ics.c om/fa q/FAQ 199 (This link is being provi ded for infor jewell salazar/ educa daniel l purpo ses only. ) Not Available [facility] [address] [place], [address], 06/26/2024 21:19:00 06/26/19 25 06/26/2024 HEMOG LOBIN A1C hemoglobin A1C 5.0 %_of_ total _HGB <5.7 normal For the purpo se of esteban dean for the prese nce of diabe mckenna: <5.7% Consi stent with the absen ce of diabe mckenna 5.7-6 .4% Consi stent with incre ased risk for diabe mckenna (pred iabet es) > or =6.5% Consi stent with diabe mckenna This assay resul t is consi stent with a decre ased risk of diabe mckenna. Curre ntly, no conse nsus exist s kamaljit dixon use of hemog lobin A1c for diagn osis of diabe mckenna in child angelica. Accor ding to Ameri can Diabe mckenna Assoc iatio n (ADA) guide lines , hemog lobin A1c <7.0% repre sents optim al contr ol in non-p regna nt diabe tic patie nts. Diffe rent metri cs may apply to speci fic patie nt popul ation s. [facility] Medic al Care in Diabe mckenna(A DA). Not Available [facility] [address] [place], [address], 06/26/2024 21:19:01 06/26/19 25 06/26/2024 CULTU RE, URINE , ROUTI NE culture, urine, routine SEE NOTE CULTU RE, URINE , ROUTI NE Micro Numbe r: [id number] Test Statu s: Final Speci men Sourc e: Urine Speci men Quali ty: Adequ ate Resul t: No Growt h Not Available [facility] [address] [address], [place], [address], 06/26/2024 21:19:03 09/19/19 24 MAMMO , scree jermaine, digit al, bilat eral [facility] [address], [place] [address] Patien t Name: STEVE DOHERTY Access ion #: [id number] Sex: F : 1970 2 Locati on: RA2 Attend ing Physic shane: RAMÓN FIGUEREDO Orderi Physic shane: RAMÓN FIGUEREDO Exam Date: 024 12:52 PM Exam Name: MG DIGITA L [place] BILAT SCREEN Admitt ing Diagno sis(es ): RADIOL OGY REPORT - FINAL EXAM: MG DIGITA L [place] BILAT SCREEN HISTOR Y: screen ing mammog nevin 52-yea r-old female with no curren t breast compla ints. COMPAR CORINNA: 2022, 2021 TECHNI QUE: Bilate ral CC and MLO views of the breast s were perfor med. Digita l Mammog love images were obtain ed. CAD (compu ter assist ed detect ion) was utiliz ed. FINDIN GS: The breast s are hetero geneou sly dense, which may obscur e small masses . There are nodula r asymme tries in the bilate ral breast s, predom inatin g in the upper outer breast s. No new masses , develo ping asymme tries, suspic ious Page 1 of 2 [facility] Patien t Name: STEVE DOHERTY Access ion #: [id number] Sex: F : 1970 2 Exam Date: 12:52 PM Exam Name: MG VINAY Rao [place] BILAT SCREEN Admitt ing Diagno sis(es ): calcif icatio ns, or deep ectura l distor tion are seen. IMPRES SUJEY: BIRADS 2: Assess ment comple te. Benign findin gs. Recomm end annual screen ing mammog love. Accord ing to the [employer] o[employer], yearly mammog tal are recomm ended starti ng at age 40 and contin uing as long as the woman is in good health . Clinic al Breast Exam should be part of the period ic health exam-a bout every 3 years for women in their 20s and 30s and every year for women 40 and over. Breast self-e xam is an option for women in their 20s. Any breast change noted on the breast self-e xam she would be report ed prompt ly to the [facility] er. A negati ve mammog love report should not discou rage follow -up or biopsy of a clinic ally signif icant findin g and/or abnorm ality. Dense breast tissue may obscur e small neopla sms. This brody valencia has been entere d into a mammog love remind er system with a target date for her next mammog nevin. Create d and electr onical ly signed by: Stoney warren MD Signed Date: 9:32 AM (CT) Dictat ed by: Stoney warren MD DD: 9:32 AM (CT) DT: 9:32 AM (CT) Page 2 of 2 [email or web address] [facility] (Imaging) [address] [place], [address], 11/27/2023 17:00:18 Result Notes Documentation Provider Name and Address Organization Details Recorded Time Mammo, Screening, Digital, Bilateral : [facility] [address] [place] [address] Patient Name: STEVE DOHERTY Meagan Sex: F : 1970 Location: RA2 Attending Physician: JE FIGUEREDO Ordering Physician: JE FIGUEREDO Exam Date: 09/18/2023 12:52 PM Exam Name: MG LIZAMA [place] BILAT SCREEN Admitting Diagnosis(es): RADIOLOGY REPORT - FINAL EXAM: MG DIGITAL [place] BILAT SCREEN HISTORY: screening mammogram 52-year-old female with no current breast complaints. COMPARISON: 08/22/2022, 06/16/2021 TECHNIQUE: Bilateral CC and MLO views of the breasts were performed. Digital Mammography images were obtained. CAD (computer assisted detection) was utilized. FINDINGS: The breasts are heterogeneously dense, which may obscure small masses. There are nodular asymmetries in the bilateral breasts, predominating in the upper outer breasts. No new masses, developing asymmetries, suspicious Page 1 of 2 [facility] Patient Name: STEVE DOHERTY Sex: F : 1970 Exam Date: 09/18/2023 12:52 PM Exam Name: Humanoid BILAT SCREEN Admitting Diagnosis(es): calcifications, or architectural distortion are seen. IMPRESSION: BIRADS 2: Assessment complete. Benign findings. Recommend annual screening mammography. According to the [employer], yearly mammograms are recommended starting at age 40 and continuing as long as the woman is in good health. Clinical Breast Exam should be part of the periodic health exam-about every 3 years for women in their 20s and 30s and every year for women 40 and over. Breast self-exam is an option for women in their 20s. Any breast change noted on the breast self-exam she would be reported promptly to the patient's health care provider. A negative mammography report should not discourage follow-up or biopsy of a clinically significant finding and/or abnormality. Dense breast tissue may obscure small neoplasms. This patient has been entered into a mammography reminder system with a target date for her next mammogram. Created and electronically signed by: Stoney Tran MD Signed Date: 09/19/2023 9:32 AM (CT) Dictated by: Stoney Tran MD (CT) (CT) Page 2 of 2 Je Figueredo MD [address], [address], [place], [address], [facility] [employer] [facility] 11/27/2023 17:00:18 Problems Name Problem SNOMED Code Status Onset Date Resolution Date Notes Provider Name and Address Organization Details Recorded Time Pain of joint of wrist 982269067 Completed Not Available [facility] 3 00:48:20 Closed Colles' fracture 097477267 Completed Not Available [facility] 3 00:48:20 Adhesive capsulitis of shoulder 821673991 Completed Not Available [facility] 3 00:48:20 Fracture of forearm 14535703 Completed Not Available 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 3 00:48:20 History of craniotomy 003834515 Active 2018 hx avm Not Available [facility] 3 00:48:20 Vitamin B12 deficiency (non anemic) 49595079 Active 2019 Not Available [facility] 3 00:48:20 Hyperglyce akshat 51807193 Active 2019 Not Available [facility] 3 00:48:21 Hernia of abdominal wall Active 2019 Not Available [facility] 3 00:48:19 Anxiety disorder 215988755 Active 2022 Not Available [facility] 3 00:48:20 Depressive disorder 21249394 Active 2022 Not Available [facility] 3 00:48:20 Hypertensi ve disorder 35347278 Active 2022 Not Available [facility] 3 00:48:20 Change in skin lesion 194387159 Active 2022 Not Available [facility] 3 00:48:20 Obesity 642033550 Active 2022 Not Available [facility] 3 00:48:20 Vitamin D deficiency 22788800 Active 2022 Je Figueredo MD [address], [address], [place], [address] , [facility] [employer] [facility] [employer] 3 16:14:16 Hyperlipid emia 43760063 Active 2022 Je Figueredo MD [address], [address], [place], [address] , [facility] [employer] 3 16:23:58 Problem Notes None recorded. Procedures Surgical History Date Name Laterality Status Provider Name and Address Organization Details Recorded Time 1 WEB ART DIRECTOR Procedure completed Not Available [facility] 2022 00:43:48 1 WEB ART DIRECTOR Surgery completed Not Available [facility] 05/04/19 00:43:48 1 Date of Last Pap Smear completed Not Available [facility] 05/03/2022 00:43:45 1 Most Recent Mammogram completed Not Available [facility] 05/03/2022 00:43:46 craniotomy completed Not Available [facility] 05/03/2022 00:43:48 WEB ART DIRECTOR Procedure completed Not Available [facility] 05/03/2022 00:43:48 Imaging Results None recorded. Procedure Notes None recorded. Medical Equipment None Reported. Allergies Allergen ID Allergen Name Allergen Category Reaction Reaction Severity Criticality Documentation Date Start Date Code Code System Note Provider Name and Address Organization Details Recorded Time 599 Substance with sulfonami de structure and antibacte rial mechanism of action (substanc e) medicatio n other Not available Not available 05/03/2022 98596 [id number] SNOMED worse alta eye infec tion Not Available [facility] 3 00:53:36 Medications Name Sig Start Date Stop Date Status Note LastModified by Organization Details LastModified Time cyclobenz aprine 10 mg tablet 12/16 completed Not Available Not Available Not Available medroxypr ogesteron e 10 mg tablet TAKE 1 TABLET BY MOUTH TWICE A DAY FOR 7 DAYS THEN EVERY DAY FOR 14 DAYS 02/02 completed Not Available Not Available Not Available Mirena 21 mcg/24 hr (up to 8 years) 52 mg intrauter ine device Take 1 device by intraute rine route. active Not Available Not Available No t Available bupropion HCl SR 150 mg tablet,12 hr sustained -release 12/16 completed Not Available Not Available Not Available atorvasta tin 20 mg tablet Take 1 tablet every day by oral route at bedtime for 90 days. 2024 active Not Available Not Available Not Avai lable citalopra m 40 mg tablet 12/16 completed Not Available Not Available Not Available irbesarta n 150 mg-hydroc hlorothia zide 12.5 mg tablet TAKE 1 TABLET BY MOUTH EVERY MORNING 2024 active Not Available Not Available Not Avai lable trazodone 50 mg tablet 12/16 completed Not Available Not Available Not Available atorvasta tin 10 mg tablet TAKE 1 TABLET BY MOUTH EVERY DAY AT BEDTIME 08/26 completed Not Available Not Available Not Available azithromy diane 250 mg tablet 12/16 completed Not Available Not Available Not Available ibuprofen 800 mg tablet TAKE 1 TABLET BY MOUTH EVERY 8 HOURS WITH FOOD NEEDED 03/11 completed Not Available Not Available Not Available levetirac etam 500 mg tablet 12/16 completed Not Available Not Available Not Available hydrocodo ne 5 mg-acetam inophen 325 mg tablet TAKE 1 TO 2 TABLETS BY MOUTH EVERY 8 HOURS NEEDED 12/16 completed Not Available Not Available Not Available metronida zole 0.75 % (37.5 mg/5 gram) vaginal gel Insert 1 applicat orful every day by vaginal route for 5 days. 03/23 completed Not Available Not Available Not Available lisinopri l 20 mg tablet 12/16 completed Not Available Not Available Not Available ondansetr on HCl 4 mg tablet TAKE 1 TABLET BY MOUTH DAILY NEEDED active Not Available Not Available No t Available Medrol (Al) 4 mg tablets in a dose pack Use as directed active Not Available Not Available No t Available prednison e 20 mg tablet TAKE 1 TABLET BY MOUTH EVERY DAY FOR 5 DAYS 03/23 completed Not Available Not Available Not Available clonazepa m 1 mg tablet 12/16 completed Not Available Not Available Not Available penicilli n V potassium 500 mg tablet TAKE 1 TABLET BY MOUTH TWICE A DAY 12/16 completed Not Available Not Available Not Available metronida zole 500 mg tablet 12/16 completed Not Available Not Available Not Available phentermi ne 37.5 mg tablet Take 1 tablet every day by oral route for 30 days. active Not Available Not Available No t Available amlodipin e 5 mg tablet TAKE 1 TABLET BY MOUTH EVERY DAY QPM. 2024 active Not Available Not Available Not Avai lable tretinoin 0.05 % topical cream APPLY A PEA-SIZE D AMOUNT TOPICALL Y TO ENTIRE FACE EVERY NIGHT AT BEDTIME active Not Available Not Available No t Available bupropion HCl SR 100 mg tablet,12 hr sustained -release 12/16 completed Not Available Not Available Not Available oxycodone -acetamin ophen 5 mg-325 mg tablet 12/16 completed Not Available Not Available Not Available alprazola m 0.5 mg tablet TAKE 1 TABLET BY MOUTH EVERY 24 HOURS NEEDED active Not Available Not Available No t Available amoxicill in 875 mg tablet TAKE 1 TABLET BY MOUTH EVERY 12 HOURS FOR 10 DAYS 12/16 completed Not Available Not Available Not Available alprazola m 0.25 mg tablet 12/16 completed Not Available Not Available Not Available citalopra m 20 mg tablet 12/16 completed Not Available Not Available Not Available meclizine 25 mg tablet Take 1 tablet 3 times a day by oral route as needed. active Not Available Not Available No t Available benzonata te 100 mg capsule 12/16 completed Not Available Not Available Not Available cyanocoba claudette (vit B-12) 1,000 mcg/mL injection solution Inject 1ml today IM 05/03 completed Not Available Not Available Not Available oseltamiv ir 75 mg capsule TAKE 1 CAPSULE BY MOUTH EVERY 12 HOURS FOR 5 DAYS active Not Available Not Available No t Available buspirone 10 mg tablet Take 1 tablet twice a day by oral route as needed for 30 days. 2024 active Not Available Not Available Not Avai lable diclofena c sodium 75 mg tablet,de layed release 12/16 completed Not Available Not Available Not Available hydroxyzi ne HCl 25 mg tablet TAKE 1 TABLET BY MOUTH EVERY 6 HOURS NEEDED MAY USE 2 TABLETS IF 1 IS NOT EFFECTIV E 03/23 completed Not Available Not Available Not Available mupirocin 2 % topical ointment APPLY SMALL AMOUNT TOPICALL Y TO THE AFFECTED AREA THREE TIMES DAILY 08/22 completed Not Available Not Available Not Available ergocalci ferol (vitamin D2) 1,250 mcg (50,000 unit) capsule Take 1 capsule every week by oral route as directed . 2023 active Not Available Not Available Not Avai lable albuterol sulfate HFA 90 mcg/actua tion aerosol inhaler INHALE 2 PUFFS BY MOUTH EVERY 4 HOURS NEEDED active Not Available Not Available No t Available norethind sky (contrace ptive) 0.35 mg tablet TAKE 1 TABLET BY MOUTH EVERY DAY 11/10 completed Not Available Not Available Not Available ondansetr on 4 mg disintegr ating tablet DISSOLVE 1 TABLET ON TONGUE EVERY 6 HOURS NEEDED FOR NAUSEA AND VOMITING 10/15 completed Not Available Not Available Not Available losartan 100 mg tablet 12/16 completed Not Available Not Available Not Available fluoxetin e 20 mg capsule Take 1 po daily 04/21 completed Not Available Not Available Not Available doxycycli ne hyclate 100 mg tablet Take 1 tablet twice a day by oral route for 14 days. active take medicati on with food to avoid upset stomach* * Not Available Not Available Not Available progester one micronize d 100 mg capsule TAKE 1 CAPSULE BY MOUTH EVERY NIGHT active Not Available Not Available No t Available bupropion HCl SR 200 mg tablet,12 hr sustained -release 12/16 completed Not Available Not Available Not Available bupropion HCl XL 150 mg 24 hr tablet, extended release TAKE 1 TABLET BY MOUTH EVERY DAY 2024 active Not Available Not Available Not Avai lable Junel FE 1.530 (28) 1.5 mg-30 mcg (21)/75 mg (7) tablet 12/16 completed Not Available Not Available Not Available escitalop nevin 5 mg tablet Take 1 po daily active Not Available Not Available No t Available losartan 100 mg-hydroc hlorothia zide 12.5 mg tablet Take 1 tablet every day by oral route for 90 days. active Not Available Not Available No t Available oxycodone 10 mg tablet 12/16 completed Not Available Not Available Not Available melatonin 5 mg tablet 12/16 completed Not Available Not Available Not Available Contrave 8 mg-90 mg tablet,ex tended release Take 2 tablets twice a day by oral route as directed for 30 days. 08/26 completed Not Available Not Available Not Available BinaxNOW COVID-19 Ag Self Test kit TEST DIRECTED TODAY 03/23 completed Not Available Not Available Not Available Wegovy 0.25 mg/0.5 mL subcutane ous pen injector INJECT 0.25 MG UNDER THE SKIN EVERY WEEK 08/26 completed Not Available Not Available Not Available Plenity (Welcome Kit) 0.75 gram capsule Take 3 capsules twice a day by oral route before meals for 30 days. 04/24 completed Not Available Not Available Not Available Zepbound 2.5 mg/0.5 mL subcutane ous pen injector Inject 2.5 mg every week by subcutan eous route as directed for 30 days. 08/26 completed Not Available Not Available Not Available Vitals Date Recorded Body height Body mass index (BMI) Body weight Body temperature Oxygen saturation Oxygen saturation in Arterial blood by Pulse oximetry Heart rate Systolic And Diastolic Provider Name and Address Organization Details Last Updated DateTime 5 170.18 cm 29.6 kg/m2 93199.3 6 g 97.3 [degF] 99 % 99 % 88 /min 126/86 mm[Hg] Socorro Bustamante RN [facility] [employer] 5 16:56:56 Date Recorded Body height Body mass index (BMI) Body weight Body temperature Heart rate Oxygen saturation Oxygen saturation in Arterial blood by Pulse oximetry Systolic And Diastolic Provider Name and Address Organization Details Last Updated DateTime 5 171.45 cm 27.7 kg/m2 16976.0 8 g 98 [degF] 88 /min 99 % 99 % 138/88 mm[Hg] Socorro Bustamante RN [facility] [employer] [employer] 5 17:18:12 Date Recorded Body height Body mass index (BMI) Body weight Body temperature Oxygen saturation Oxygen saturation in Arterial blood by Pulse oximetry Heart rate Systolic And Diastolic Provider Name and Address Organization Details Last Updated DateTime 5 171.45 cm 27.3 kg/m2 68837.2 g 97.8 [degF] 99 % 99 % 91 /min 132/70 mm[Hg] Socorro Bustamante RN [facility] [employer] [facility] 5 17:19:56 Date Recorded Body height Body mass index (BMI) Body weight Body temperature Heart rate Oxygen saturation Oxygen saturation in Arterial blood by Pulse oximetry Systolic And Diastolic Provider Name and Address Organization Details Last Updated DateTime 4 170.18 cm 33.2 kg/m2 76227.2 8 g 98.2 [degF] 80 /min 98 % 98 % 118/66 mm[Hg] Naga Call [employer] [facility] 14:43:07 Date Recorded Body height Body mass index (BMI) Body weight Body temperature Heart rate Respiratory rate Oxygen saturation Oxygen saturation in Arterial blood by Pulse oximetry Systolic And Diastolic Provider Name and Address Organization Details Last Updated DateTime 4 170.18 cm 31 kg/m2 06853.2 9 g 98.1 [degF] 80 /min 16 /min 99 % 99 % 128/78 mm[Hg] Naga [employer] [facility] [employer] [facility] 4 16:57:55 Social History Question Answer Notes LastModified by Organization Details LastModified Time Tobacco Smoking Status Former Smoker socially Not Available [facility] 05/03/2022 00:43:32 Do You Have An Advance Directive? No MIGRATION.030 [id number] Information not available 05/03/2022 How Many Years Have You Consumed Alcohol? 31 [email or web address] Information not available 05/27/2024 What Is Your Level Of Caffeine Consumption? Moderate 2 Cups Of Coffee Daily Information not available 05/27/2024 What Is Your Code Status? Full Code [id number] Information not available 05/03/2022 In The 14 Days Before Symptom Onset, Have You Had Close Contact With A Laboratory-conf irmed COVID-19 While That Case Was Ill? No MIGRATION.030 [id number] Information not available 05/03/2022 In The 14 Days Before Symptom Onset, Have You Had Close Contact With A Person Who Is Under Investigation For COVID-19 While That Person Was Ill? No MIGRATION.030 401251 Information not available 05/03/2022 What Type Of Diet Are You Following? REGULAR [id number] Information not available 05/03/2022 What Is The Highest Grade Or Level Of School You Have Completed Or The Highest Degree You Have Received? [id number] [id number].[id number] Information not available 05/03/2022 Have There Been Any Changes To Your Family Or Social Situation? No [id number] Information not available 05/03/2022 When Did You Quit Smoking? 6-10yearssincelast cigarette Quit 2016 Information not available 05/27/2024 Do You Use Insect Repellent Routinely? Yes MIGRATION.0301 [id number] Information not available 05/03/2022 Where Do You Live? 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 No MIGRATION.0301 360006 Information not available 05/03/2022 What Is Your Current Pack Years? 20-29packyears [email or web address] Information not available 05/27/2024 Do You Have Any Pets? Yes MIGRATION.0301 704605 Information not available 05/03/2022 What Is Your Relationship Status? Single MIGRATION.0301 [id number] Information not available 05/03/2022 Do You Have Smoke And Carbon Monoxide Detectors In Your Home? Yes MIGRATION.0301 [id number] Information not available 05/03/2022 At What Age Did You Start Smoking Tobacco? 19 Information not available 05/27/2024 Are You Passively Exposed To Smoke? No MIGRATION.0301 113711 Information not available 05/03/2022 Are There Any Smokers In Your House? No MIGRATION.0301 376333 Information not available 05/03/2022 How Much Tobacco Do You Smoke? 0.5 PPD [email or web address] Information not available 05/27/2024 Do You Use Sunscreen Routinely? Yes MIGRATION.0301 489046 Information not available 05/03/2022 How Many Years Have You Smoked Tobacco? 20 [email or web address] Information not available 05/27/2024 Have You Recently Traveled Abroad? No MIGRATION.0301 [id number] Information not available 05/03/2022 Are You Currently In School? No MIGRATION.0301 [id number] Information not available 05/03/2022 Do You Have Any Dietary Restrictions? No MIGRATION.0301 [id number] Information not available 05/03/2022 Sex: Unknown Functional Status Question Answer Note LastModified by Organizat ion Details LastModified Time Do you use any illicit or recreational drugs? No [email or web address] Information not available 05/27/2024 Do you or have you ever used any other forms of tobacco or nicotine? No MIGRATION.60940 64564 Information not available 05/03/2022 What is your level of alcohol consumption? Occasional 2 glasses of wine on the weekend Information not available 05/27/2024 Do you or have you ever used smokeless tobacco? 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 Never used electronic cigarettes MIGRATION.50021 32164 Information not available 05/03/2022 What is your exercise level? None MIGRATION.52366 37207 Information not available 05/03/2022 Mental Status Question Answer Note LastModified by Organizat ion Details LastModified Time Do you feel stressed (tense, restless, nervous, or anxious, or unable to sleep at night)? [id number] MIGRATION.[id number] Information not available 05/03/2022 Family History Relationship Description Onset Age of this Age Resolved Age Notes LastModified by Organization Details LastModified Time Father Hypertensive disorder MIGRATION.948 [id number] Not available 05/03/2022 00:43:53 Father Atrial fibrillation MIGRATION.465 [id number] Not available 05/03/2022 00:43:53 Paternal Grandfather Hypertensive disorder MIGRATION.739 [id number] Not available 05/03/2022 00:43:53 Paternal Grandfather Diabetes mellitus MIGRATION.299 [id number] Not available 05/03/2022 00:43:53 Paternal Grandfather Myocardial infarction MIGRATION.025 [id number] Not available 05/03/2022 00:43:53 Paternal Grandmother Hypertensive disorder MIGRATION.567 [id number] Not available 05/03/2022 00:43:53 Paternal Grandmother Cerebrovascu lar accident MIGRATION.845 [id number] Not available 05/03/2022 00:43:53 Mother Dementia MIGRATION.971 [id number] Not available 05/03/2022 00:43:54 Mother Aneurysm 64 MIGRATION.222 [id number] Not available 05/03/2022 00:43:54 Unspecified Relation Heart disease patern al side MIGRATION.495 [id number] Not available 05/03/2022 00:43:54 Medical History Condition Response ANXIETY DISORDER Y DEPRESSION (INCLUDING POST ) Y ANEURYSM Y HYPERTENSION Y Gynecological History Statement/Question Response How many live births 1 Abnormal Pap Y Date of Last Mammogram 07/23/2021 Date of Last Colonoscopy Most Recent Bone Density Date of LMP 12/31/2020 Sexually Active? Y Date of Last Pap 11/10/2020 Date of Last Pap Smear 05/04/2020 Most Recent Mammogram 05/03/2020 Current Control Method IUD Obstetrics History GPAL:G 1 P 1 0 0 1 Type Value Full Term 1 Living 1 Total 1 Immunizations Vaccine Type Date Status Note Provider Nam e and Address Organization Details Recorded Time Tdap 5 completed NIK Ramriez [facility] [employer] 05/27/2024 17:40:29 COVID-19, mRNA, LNP-S, PF, 100 mcg/0.5mL dose or 50 mcg/0.25mL dose 1 completed Not Available [facility] 05/03/2022 00:53:30 COVID-19, mRNA, LNP-S, bivalent, PF, 10 mcg/0.2 mL dose 2 completed Not Available [facility] 05/03/2022 00:53:31 influenza, unspecified formulation 2 completed Not Available [facility] 05/03/2022 00:53:31 COVID-19, mRNA, LNP-S, PF, 100 mcg/0.5mL dose or 50 mcg/0.25mL dose 1 completed Not Available [facility] 05/03/2022 00:53:31 COVID-19, mRNA, LNP-S, PF, 100 mcg/0.5mL dose or 50 mcg/0.25mL dose 1 completed Not Available [facility] 05/03/2022 00:53:31 Influenza, split virus, quadrivalent, preservative 0 completed Not Available [facility] 05/03/2022 00:53:31 Influenza, split virus, quadrivalent, preservative 9 completed Not Available [facility] 05/03/2022 00:53:31 pneumococcal polysaccharide PPV23 4 completed Naga perez AR [employer] [facility] [employer] 04/30/2023 08:06:28 Past Encounters Encounter ID Performer Location Encounter Start Date Encounter Closed Date Diagnosis/Indication Diagnosis SNOMED-CT Code Diagnosis ICD10 Code Diagnosis Note [id number] [facility] Ole reilly [address] [place] [address] y , [place] [address] 05/03/2020 00:00:00 05/03/2020 17:50:22 [id number] Chip Real [facility] Ole reilly [address] [place] [address] y , [place] [address] 09/01/2020 00:00:00 09/01/2020 11:58:31 [id number] [facility]_ DEFAULT_1 _1 , 09/08/2020 00:00:00 09/08/2020 14:42:46 [id number] [facility] _ATHENA_M IGRATION_ DEFAULT_1 _1 , 10/12/2020 00:00:00 10/12/2020 13:05:33 [id number] [facility] _ATHENA_M IGRATION_ DEFAULT_1 _1 , 11/10/2020 00:00:00 11/10/2020 19:38:46 [id number] [facility]_M IGRATION_ DEFAULT_1 _1 , 02/02/2021 00:00:00 02/02/2021 21:26:55 [id number] Chip Real MD [facility] Ole reilly [address] [place] [address] [place] [address] 03/22/2021 00:00:00 03/23/2021 09:09:13 [id number] Chip Real MD [facility] Ole reilly [address] [place] [address] [place] [address] 09/21/2021 00:00:00 09/21/2021 11:00:09 [id number] Je Figueredo MD [address] [address] [place] [address] 03/23/2022 00:00:00 03/23/2022 18:01:05 [id number] Je Figueredo MD [address] [address] 08/22/2022 15:58:13 08/22/2022 16:38:58 Vitamin D deficiency 90220356 E55.9 Depressive disorder 3548 9007 F32.A Anxiety disorder F41.9 Hypertensive disorder 38 501993 I10 Obesity 471979724 E66.9 Cerebral arteriovenous malformation 592378568 Q28.2 Hyperlipidemia 98040552 E78.5 mild History an d physical examination, pre-employment 228160603 Z02.1 [id number] Je Figueredo MD [address] [address] 11/22/2022 17:13:11 11/22/2022 17:56:29 Vitamin D deficiency 46077935 E55.9 Depressive disorder 3548 9007 F32.A Anxiety disorder F41.9 Hypertensive disorder 38 283349 I10 Hyperlipidemia 79518117 E78.5 mild Obesity 252647253 E66.9 Cerebral arteriovenous malformation 857610294 Q28.2 [id number] Je Figueredo MD [address] [address] 04/24/2023 16:47:04 04/24/2023 17:26:52 Hyperlipidemia 97572039 E78.5 mild Depressive disorder 3548 9007 F32.A Anxiety disorder F41.9 Vitamin D deficiency 347 86418 E55.9 Hypertensive disorder 38 804936 I10 Obesity 407523234 E66.9 Cerebral arteriovenous malformation 230672971 Q28.2 Adult heal th examination 333040041 Z00.00 Active or passive immunization 430874968 Z23 [id number] Je Figueredo MD [address] [address] 05/16/2023 17:06:36 05/16/2023 17:37:29 Hyperlipidemia 95869206 E78.5 mild Depressive disorder 3548 9007 F32.A Anxiety disorder F41.9 Vitamin D deficiency 347 57740 E55.9 Hypertensive disorder 38 855849 I10 Obesity 109083271 E66.9 Cerebral arteriovenous malformation 635094374 Q28.2 [id number] Je Figueredo MD [address] [address] 08/27/2023 14:37:12 08/27/2023 15:21:34 Hypertensive disorder 83440425 I10 Hyperlipidemia 00447295 E78.5 Depressive disorder 3548 9007 F32.A Anxiety disorder F41.9 Vitamin D deficiency 347 89117 E55.9 Obesity 916099090 E66.9 Cerebral arteriovenous malformation 537459843 Q28.2 [address] [facility] 24 522714 Z12.31 [id number] Je Figueredo MD [address] [address] 11/27/2023 16:47:47 11/27/2023 17:08:11 Hyperlipidemia 63165986 E78.5 Hypertensive disorder 38 114552 I10 Depressive disorder 3548 9007 F32.A Anxiety disorder F41.9 Vitamin D deficiency 347 65749 E55.9 Improved Obesity 338774730 E66.9 Cerebral arteriovenous malformation 086773638 Q28.2 [id number] Je Figueredo MD [address] [address] 03/11/2024 16:48:52 03/11/2024 17:09:52 Hyperlipidemia 64407891 E78.5 Hypertensive disorder 38 202211 I10 Depressive disorder 3548 9007 F32.A Anxiety disorder F41.9 Vitamin D deficiency 347 36503 E55.9 Improved Obesity 833820890 E66.9 Cerebral arteriovenous malformation 085943714 Q28.2 [id number] Je Fgiueredo MD [address] [address] 05/27/2024 17:08:45 05/27/2024 17:42:00 Depressive disorder 03877485 F32.A Anxiety disorder F41.9 Hypertensive disorder 38 143112 I10 Hyperlipidemia 93287866 E78.5 Vitamin D deficiency 347 57053 E55.9 Improved Cerebral arteriovenous malformation 398296626 Q28.2 Obesity 813624024 E66.9 Adult heal th examination 221442408 Z00.00 Immunization due 6371758 08 Z28.39 Active immunization 3387 9002 Z23 [id number] Je Figueredo MD [facility] [address] 07/02/2024 17:11:48 07/02/2024 17:28:19 Depressive disorder 41857243 F32.A Anxiety disorder F41.9 Hypertensive disorder 38 220341 I10 Hyperlipidemia 91290710 E78.5 Vitamin D deficiency 347 04828 E55.9 Improved Cerebral arteriovenous malformation 627988141 Q28.2 Obesity 651772556 E66.9 Health Concerns Section Related Observation LastModified by Organization Detai ls LastModified Time None Recorded Concern Status LastModified by Organization Details LastModified Time None Recorded Advance Directives Directive N: Payers Insurance Date Sequence Insurance Name Policy Number Policy Saldivar Covered Member ID Saldivar Member ID Guarantor Name 04/25/2024 [facility] Steve Kishore SELF SELF Steve Kishore 07/04/[address] [facility] [id number] Steve Kishore [id number] Steve Kishore 03/11/[address] [facility] [id number] [facility] [id number] [facility] Notes Date Note Type Note Provider Name and Address Organization Details Recorded Time 08/27/2023 text/html Pt is here for f /u on her lab and chronic conditions. Doing overall well. Denies any problem with meds. Denies any new concern. Still c/o wt gain. Pt did not tolerate Plenity well and so she stopped it. Pt's insurance declined for Wegovy & Zepbound. Pt has tried OTC supplements in the past. Pt doesn't want to try Phentermine. Pt [facility] with [facility] for her options with it. Je Figueredo MD [address] [place] [address], [place], [address], [facility] [employer] 08/27/2023 15:20:28 11/27/2023 text/html Pt is here for f /u on her lab and chronic conditions. Doing overall well. Denies any problem with meds. Denies any new concern. Pt is f/u with Dr. Weeks for compounded semaglutide injection and she is doing well with it. Pt's insurance declined for Wegovy & Zepbound. Pt has tried OTC supplements in the past. Pt doesn't want to try Phentermine. Pt is f[facility] with [facility] for her options with it. Doing overall well with her mood. Denies any mood swings/SI/HI. Je Figueredo MD [address] [facility] [address], [place], [address], [facility] [place] [employer] 11/27/2023 17:09:14 03/11/2024 text/html Pt is here for f /u on her meds and chronic conditions. Doing overall well. Denies any problem with meds. Denies any new concern. Pt is f/u with Dr. Weeks for compounded semaglutide injection and she is doing well with it. Pt's insurance declined for Wegovy & Zepbound. Pt has tried OTC supplements in the past. Pt doesn't want to try Phentermine. Doing overall well with her mood. Denies any mood swings/SI/HI. Je Figueredo MD [address] [facility] [address], [place], [address], [employer] [facility] [employer] 03/11/2024 17:21:05 05/27/2024 text/html Pt is here for h er annual exam. Doing overall well. Denies any problem with meds. Denies any new concern. Pt wants to get checked for MMR titers. Pt is f/u with Dr. Weeks for compounded semaglutide injection and she is doing well with it. Pt's insurance declined for Wegovy & Zepbound. Pt has tried OTC supplements in the past. Pt doesn't want to try Phentermine. Doing overall well with her mood. Denies any mood swings/SI/HI. Je Figueredo MD [address], [address], [place], [address], [facility] [employer] [facility] [employer] [facility] 05/27/2024 17:36:23 07/02/2024 text/html Pt is here for f /u on her annual labs. Doing overall well. Denies any problem with meds. Denies any new concern. Pt recently lost her job and now she needs to find new one. So she is under some extra stress due to this. Pt is f/u with Dr. Weeks for compounded semaglutide injection and she is doing well with it. Pt's insurance declined for Wegovy & Zepbound. Pt has tried OTC supplements in the past. Pt doesn't want to try Phentermine. Doing overall well with her mood. Denies any mood swings/SI/HI. Je Figueredo MD [address] [place] [address], [facility] [address], [place], [address], [employer] 07/02/2024 17:33:47 OBGyn Episode No OBEpisode recorded.
--- OUTSIDE RECORDS SUMMARY | 2024-09-18 11:57 | XMS_ITS | Clinical Summary ---
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 Name Role Phone Rene Mejia MD Primary Care Provider [phone] Allergies Active Allergy Reactions Criticality Noted Date [...] Active Active Problems No known active problems Encounters Date Type Department Care Team Description 09/03/2024 11:00 AM CDT Office Visit [facility] at [address] [address] Corry Becerra NP Physical exam, pre-employment (Primary Dx) from Last 3 Months Social History Tobacco Use Types Packs/Day Years Used Date Smoking Tobacco: Never Personal Safety Answer Date Recorded Getting School Help Needed Not on file 05/19 Comments Unknown Sex and Gender Information Value Date Recorded Sex Assigned at Not on file 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 Gender Identity Not on file Sexual Orientation Not on file Obstetrics History Last Filed Vital Signs Vital Sign Reading [...] 09/03/2024 11:07 AM CDT Plan of Treatment Health Maintenance Due Date Last Done Comments Breast Cancer Screening-Mammogram 1971 Cervical Cancer Screening 1971 Colon Cancer Screening-Colonoscopy 1971 Depression Screening 1971 Hepatitis C Screening 1971 Regular Well Visit/Exam 18-64 11/16/1989 Zoster Vaccine (1 of 2) 11/16/2021 Influenza Vaccine (#1) 2024 2, 12/10/2019, 12/18/2018 DTaP/Tdap/Td Vaccine (2 - Td or Tdap) 05/27/2034 05/27/2024 Hepatitis B Screening Completed 03/05/2017 Pneumococcal vaccine <65 Aged Out 04/30/2023 No longer eligible based on patient's age to complete this topic Care Teams Railroad Repairer Relationship Specialty Start Date End Date Rene Mejia MD PCP - General 07/18/17
== END 2024-09-18 11:53 | disposition home or self-care (01) ==
PROVIDERS: PCP Family Medicine; Visit Provider Family Medicine
DX: Z12.31 Encounter for screening mammogram for malignant neoplasm of breast (principal)
CPT/HCPCS: 77063; 77067